=== PATIENT | female | born 1965 | race Caucasian/White ===

== ENCOUNTER 2019-11-18 17:10 | Inpatient (IN) | payer OTHER ==
[~2019-11-18] VITALS: Ht 177.8 cm; Wt 49.4 kg
--- NOTE | 2019-11-18 17:26 | NUR ---
[facility] from [facility] "Increasing confusion/vomiting". PT PRESENTS VERY JAUNDICED. DENIES SOB, DENIES PAIN, DIZZINESS, WEAKNESS. AOX2, VSS, RR EVEN AND UNLABORED ON RA. CONSTANTLY REPEATS HERSELF. ON MONITOR, MADE COMFORTABLE, AND READY FOR EVAL.
--- NOTE | 2019-11-18 17:50 | NUR ---
SPOKED TO PT SISTER CALL HER BACK FOR UPDATE [phone]
[2019-11-18 18:07] LABS: BASOPHILS # (AUTO) 0.1 /CMM (0.0-0.2); HEMOGLOBIN 9.3 g/dL (11.5-14.8); LYMPHOCYTES # (AUTO) 1.1 /CMM (0.8-4.8)
--- NOTE | 2019-11-18 18:10 | NUR ---
URINE SENT TO STAT LAB
[2019-11-18 18:11] LABS: WHITE BLOOD COUNT (AUTO) 9.7 K/uL (4.3-11.0)
[2019-11-18 18:15] LABS: CALCIUM, SERUM 10.4 mg/dL (8.5-10.1); CREATININE 0.9 mg/dL (0.6-1.3); POTASSIUM 4.7 mmol/L (3.5-5.1)
--- NOTE | 2019-11-18 18:16 | NUR ---
XRAY AT BEDSIDE
[2019-11-18 18:18] LABS: MAGNESIUM 2.1 mg/dL (1.8-2.4); PHOSPHORUS 3.8 mg/dL (2.5-4.9)
[2019-11-18] MEDS ORDERED: ZINC1CAP2 PO (18:19)
[2019-11-18] MEDS ORDERED: ACET-868 PO (18:19)
[2019-11-18] MEDS ORDERED: RIFA550T PO (18:19)
[2019-11-18] MEDS ORDERED: LIDO30JE4 TD (18:19)
[2019-11-18] MEDS ORDERED: LACT10SO PO (18:19)
[2019-11-18] MEDS ORDERED: DOCU-141 PO (18:19)
[2019-11-18] MEDS ORDERED: THIA100T74 PO (18:19)
[2019-11-18] MEDS ORDERED: ERGO500014 PO (18:19)
[2019-11-18] MEDS ORDERED: FOLI0.8T PO (18:19)
[2019-11-18] MEDS ORDERED: NA P133E RC (18:19)
[2019-11-18] MEDS ORDERED: OXYM-12 (18:19)
[2019-11-18] MEDS ORDERED: FURO-144 PO (18:19)
[2019-11-18] MEDS ORDERED: [UNRECOGNIZED DRUG - CODE] IV (18:19)
[2019-11-18] MEDS ORDERED: PANT40TA2 PO (18:19)
[2019-11-18] MEDS ORDERED: POLY17PO4 PO (18:19)
[2019-11-18] MEDS ORDERED: SPIR100T5 PO (18:19)
[2019-11-18] MEDS ORDERED: ACET-2605 PO ×2 (18:19)
[2019-11-18] MEDS ORDERED: SENN-261 PO (18:19)
[2019-11-18] MEDS ORDERED: SODI88SP18 (18:19)
[2019-11-18] MEDS ORDERED: BISA10SU11 RC (18:19)
[2019-11-18] MEDS ORDERED: MAGN400O6 PO (18:19)
[2019-11-18] MEDS ORDERED: MULT-447 PO (18:19)
[2019-11-18] MEDS ORDERED: MIDO5TAB4 PO (18:19)
[2019-11-18 18:21] LABS: APPEARANCE,URINE Slightly Cloudy (CLEAR); BILIRUBIN,URINE MODERATE (NEGATIVE); BLOOD, URINE Moderate Ery/uL (NEGATIVE); COLOR,URINE Dark (YELLOW); KETONES,URINE Negative (NEGATIVE); LEUKOCYTE ESTERASE ,URINE Negative (NEGATIVE); NITRITE, URINE Negative (NEGATIVE); PROTEIN,URINE Negative (NEGATIVE); UGLUCOSE Negative (NEGATIVE)
[2019-11-18 18:29] LABS: ALBUMIN 3.7 g/dL (3.4-5.0); BILIRUBIN,DIRECT 11.3 mg/dL (0.0-0.2); BILIRUBIN,TOTAL 21.9 mg/dL (0.2-1.0); TOTAL PROTEIN, SERUM 7.2 g/dL (6.4-8.2)
--- NOTE | 2019-11-18 18:52 | NUR ---
SPOKE WITH INTERACTIVE MEDIA PROJECT MANAGER TO UPDATE WITH CLINICALS
--- NOTE | 2019-11-18 19:01 | NUR ---
PT RESTING COMFORTABLY IN BED. VSS. WILL CONT TO MONITOR.
[2019-11-18 19:03] LABS: EOSINOPHILS % (AUTO) 2.9 % (0.0-6.0); HEMATOCRIT 26 % (33-45); LYMPHOCYTES % (AUTO) 11.3 % (20.0-44.0); MEAN CORPUSCULAR HGB CONC 37 g/dl (31.0-36.0); MEAN CORPUSCULAR VOLUME 110 fL (82-100); MONOCYTES # (AUTO) 1.2 /CMM (0.1-1.30); MONOCYTES % (AUTO) 12.8 % (2.0-12.0); PLATELET COUNT (AUTO) 123 /CMM (150-450); RED BLOOD CELL COUNT(AUTO) 2.32 MIL/uL (4.0-5.2)
[2019-11-18 19:22] LABS: BACTERIA,URINE Moderate /HPF (None Seen); SQUAMOUS EPITHELIAL CELL,UR Moderate /HPF (None Seen); WBC,URINE 0-2 /HPF (0-3)
--- NOTE | 2019-11-18 19:37 | NUR ---
MOVED PT TO ER BED 12 DUE TO NEED FOR SITTER. PT MAKING ATTEMPTS TO GET OUT OF BED.
--- NOTE | 2019-11-18 20:16 | NUR ---
PANEL CALL IN PROGRESS WITH DR. KNOTT
[2019-11-18] MEDS ORDERED: CT SWABBABLE VALVE TRANS SET 1 EA INFUS.SET MC ONE (20:29)
[2019-11-18] MEDS ORDERED: IOHEXOL-300 100 ML VIAL IV ONE (20:29)
[2019-11-18] MEDS ORDERED: IV NS 0.9% 250 ML IV ONE (20:30)
--- NOTE | 2019-11-18 20:33 | NUR ---
LIDYA FOY (SISTER) : [phone]
--- NOTE | 2019-11-18 20:33 | NUR ---
PT TAKEN TO RADIOLOGY VIA [facility]
--- NOTE | 2019-11-18 20:34 | NUR ---
DR. POLINA DUFFY (liver specialist) [phone]. pcp: Dr. gaudencio cortez [phone]
--- NOTE | 2019-11-18 21:04 | NUR ---
BODY AND FENDER WORKER AT BEDSIDE
--- NOTE | 2019-11-18 21:25 | NUR ---
REPORT GIVEN TO BRIANNE ADKINS FOR 325-2, DR HEDY CHAUDHARY Addendum: 11/18/19 at 2154 by MISBAH BRIANNE MITCHELL
[2019-11-18] MEDS ORDERED: POLYETHYLENE GLYCOL 3350 17 GM POWD.PACK PO PRN (21:30)
[2019-11-18] MEDS ORDERED: BISACODYL SUPP (10 MG) 10 MG/SUPP.RECT SUPP.RECT RC PRN (21:30)
[2019-11-18] MEDS ORDERED: NA PHOS,M-B/NA PHOS,DI-BA 1 EA ENEMA RC PRN (21:30)
[2019-11-18 21:49] VITALS: BP 105/63
--- NOTE | 2019-11-18 21:49 | NUR ---
CONSTRUCTION ASSISTANT NOTES RECEIVED PATIENT FROM ER VIA [facility]. PATIENT WAS A/O X2-3. ON ROOM AIR, NO SOB/ ACUTE RESPIRATORY DISTRESS NOTED. NO COMPLAINTS OF PAIN. ORIENTED PATIENT TO ROOM. CALL LIGHT WITHIN REACH. VITALS TAKEN- BP 105/63, HR 85, RR 18. ORAL TEMP 97.6, O2 SAT 98%. BED IS IN LOWEST LOCKED POSITION WITH SIDE RAILS UP X2, SEMI FOWLERS. WILL CONTINUE TO MONITOR.
--- NOTE | 2019-11-18 21:54 | NUR ---
[facility]
[2019-11-18] MEDS ORDERED: MAG HYDROX/AL HYDROX/SIMETH 30 ML UDC PO PRN (22:00)
[2019-11-18] MEDS ORDERED: ACETAMINOPHEN 325 MG TABLET PO PRN (22:00)
[2019-11-18] MEDS: DOCUSATE SODIUM 100 MG CAPSULE PO SCH (23:07)
[2019-11-18] MEDS: LACTULOSE 10 G/15 ML UDC (PYXIS) PO SCH (23:07)
[2019-11-19] VITALS: BP 106/63
[2019-11-19] MEDS: IV NS 0.9% 1,000 ML IV PRN ×2 (01:22→17:11)
[2019-11-19 04:00] VITALS: BP 115/59
[2019-11-19] MEDS: MIDODRINE HCL (5MG) 5 MG TABLET PO SCH ×3 (04:09→21:17)
[2019-11-19 06:21] LABS: BASOPHILS % (AUTO) 0.4 % (0.0-2.0); EOSINOPHILS % (AUTO) 3.7 % (0.0-6.0); HEMATOCRIT 23 % (33-45); HEMOGLOBIN 8.5 g/dL (11.5-14.8); LYMPHOCYTES # (AUTO) 1.3 /CMM (0.8-4.8); MEAN CORPUSCULAR HGB CONC 37 g/dl (31.0-36.0); MEAN CORPUSCULAR VOLUME 111 fL (82-100); MONOCYTES # (AUTO) 1.1 /CMM (0.1-1.30); MONOCYTES % (AUTO) 13.4 % (2.0-12.0); NEUTROPHILS # (AUTO) 5.7 /CMM (1.8-8.9); NEUTROPHILS % (AUTO) 67.5 % (43.0-81.0); PLATELET COUNT (AUTO) 114 /CMM (150-450); RED BLOOD CELL COUNT(AUTO) 2.08 MIL/uL (4.0-5.2); WHITE BLOOD COUNT (AUTO) 8.4 K/uL (4.3-11.0)
--- NOTE | 2019-11-19 06:21 | NUR ---
VEGETABLE VENDOR CLOSING NOTES PATIENT IS LAYING IN BED. CALL LIGHT IS WITHIN REACH. ON ROOM AIR, NO SOB/ ACUTE RESPIRATORY DISTRESS NOTED. NO COMPLAINTS OF PAIN AT THIS TIME. IV ON RIGHT AC #20G IS PATENT AND INTACT RUNNING NS @ 75MLS/HR. BED IS IN LOWEST LOCKED POSITION WITH SIDE RAILS UP X2. NORMAL SINUS RHYTHM 87. A/O X2-3. ALL DUE MEDS GIVEN. WILL ENDORSE TO AM NURSE.
[2019-11-19 06:44] LABS: CALCIUM, SERUM 9.7 mg/dL (8.5-10.1); CREATININE 0.9 mg/dL (0.6-1.3); PHOSPHORUS 3.8 mg/dL (2.5-4.9); POTASSIUM 4.9 mmol/L (3.5-5.1)
[2019-11-19 06:45] LABS: THYROID STIMULATING HORMONE 0.824 uIU/mL (0.358-3.74)
[2019-11-19 07:13] LABS: EOSINOPHILS % (MANUAL) 2 % (0-4); LYMPHOCYTES % (MANUAL) 15 % (16-48); MONOCYTES % (MANUAL) 9 % (0-11.0); NEUTROPHILS % (MANUAL) 74 (42-76)
--- NOTE | 2019-11-19 07:15 | NUR ---
RN NOTES RECEIVED PATIENT IN BED RESTING COMFORTABLY IN MODERATE HIGH BACK REST. A/O X 3. NO SIGNS OF DISTRESS NOTED AT THIS TIME. IV FLUIDS ON RIGHT AC #20G RUNNING NS @ 75MLS/HR. PATENT AND INTACT. ON TELE MONITOR WITH CURRENT READING OF SR, HR OF 80'S. SAFETY MEASURES IN PLACE, BED IS IN LOWEST LOCKED POSITION WITH SIDE RAILS UP X2. CALL LIGHT WITHIN REACH. WILL CONTINUE TO MONITOR.
[2019-11-19 08:00] VITALS: BP 115/56
[2019-11-19 08:08] LABS: THYROID STIMULATING HORMONE 0.775 uIU/mL (0.358-3.74)
[2019-11-19] MEDS: LACTULOSE 10 G/15 ML UDC (PYXIS) PO SCH ×2 (08:38→16:16)
[2019-11-19] MEDS: THIAMINE HCL 100 MG TABLET PO SCH ×3 (08:38→16:16)
[2019-11-19] MEDS: PANTOPRAZOLE 40 MG TABLET.DR PO SCH (08:38)
[2019-11-19] MEDS: RIFAXIMIN 550 MG TABLET PO SCH ×2 (08:38→16:16)
[2019-11-19] MEDS: ZINC SULFATE 220 MG CAPSULE PO SCH (08:38)
[2019-11-19] MEDS: MULTIVITAMINS,THERAGRAN 1 UDTAB TABLET PO SCH (08:38)
[2019-11-19] MEDS: FOLIC ACID 1 MG TABLET PO SCH (08:38)
--- NOTE | 2019-11-19 09:19 | NUR ---
WOUND CARE CONSULT; PT PRESENTS WITH SCAR TO LOWER SACRUM AND VERY JAUNDICED SKIN AND SCLERA, PRESENT ON ADMISSION. PT MOVES IN BED ALMOST CONSTANTLY AND PT NOTED TO BE INCONTINENT. RECOMMENDATIONS MADE FOR SKIN PROTECTION. DISCUSSED WITH NURSING STAFF. WILL SEE PRN. ZUÑIGA IN AGREEMENT WITH PLAN OF CARE. Addendum: 11/19/19 at 0921 by BRIAN CHAPA WNDNU Amended: Links added.
[2019-11-19] MEDS ORDERED: Z GUARD REMEDY 2 OZ OINT TP PRN (09:30)
[2019-11-19] MEDS: Z GUARD REMEDY 2 OZ OINT TP SCH (10:02)
--- NOTE | 2019-11-19 12:10 | NUR ---
RN NOTES PICKED BY VIA WHEELCHAIR FOR MRCP, CONSENT SIGNED, PATIENT IN NO SIGNS OF DISTRESS.
--- NOTE | 2019-11-19 13:10 | NUR ---
RN NOTES PATIENT CAMEBACK FROM [facility] VIA WHEELCHAIR, PATIENT IN NO SIGNS OF DISTRESS. WILL CONTINUE TO MONITOR.
[2019-11-19 16:00] VITALS: BP 113/59
--- NOTE | 2019-11-19 18:38 | NUR ---
RN NOTES PATIENT IN BED RESTING COMFORTABLY IN MODERATE HIGH BACK REST. A/O X 3. NO SIGNS OF DISTRESS NOTED THROUGHOUT THE SHIFT. S/P MRCP, IV FLUIDS ON RIGHT AC #20G RUNNING NS @ 75MLS/HR. PATENT AND INTACT. SAFETY MEASURES IN PLACE, BED IS IN LOWEST LOCKED POSITION WITH SIDE RAILS UP X2. CALL LIGHT WITHIN REACH. WILL ENDORSE TO THIRD COOK NURSE FOR JAYCEE.
--- NOTE | 2019-11-19 19:00 | NUR ---
RN OPENING NOTES' Receive patient awake on bed on RA, no SOB/respiratory distress noted. No complaints made at this time. On bed with bizarre behavior, no harm to self noted. Patient refused to clean up self, hair unkempt, likes to undress self. Kept on bed comfortable. Call light within easy reach. Will continue to monitor accordingly.
[2019-11-19 20:00] VITALS: BP 115/69
[2019-11-19] MEDS: DOCUSATE SODIUM 100 MG CAPSULE PO SCH (21:17)
[2019-11-20] MEDS: MIDODRINE HCL (5MG) 5 MG TABLET PO SCH ×3 (05:32→21:56)
[2019-11-20 06:25] LABS: BASOPHILS % (AUTO) 0.2 % (0.0-2.0); EOSINOPHILS % (AUTO) 3.2 % (0.0-6.0); HEMATOCRIT 22 % (33-45); HEMOGLOBIN 8.2 g/dL (11.5-14.8); LYMPHOCYTES # (AUTO) 1.2 /CMM (0.8-4.8); LYMPHOCYTES % (AUTO) 16.8 % (20.0-44.0); MEAN CORPUSCULAR HGB CONC 38 g/dl (31.0-36.0); MEAN CORPUSCULAR VOLUME 113 fL (82-100); MONOCYTES # (AUTO) 1.1 /CMM (0.1-1.30); MONOCYTES % (AUTO) 15.2 % (2.0-12.0); NEUTROPHILS # (AUTO) 4.7 /CMM (1.8-8.9); NEUTROPHILS % (AUTO) 64.6 % (43.0-81.0); WHITE BLOOD COUNT (AUTO) 7.3 K/uL (4.3-11.0)
[2019-11-20 06:39] LABS: URINE SODIUM, RANDOM 65 mmol/l (40-220)
[2019-11-20] MEDS: IV NS 0.9% 1,000 ML IV PRN (06:39)
--- NOTE | 2019-11-20 06:48 | NUR ---
RN CLOSING NOTES Patient awake on bed, on RA. Noted able to sleep intermittently within the shift. All nursing needs attended. No new unusualities noted. Kept on bed clean, dry and comfortable. Call light within easy reach. Endorsed.
[2019-11-20 06:51] LABS: ALBUMIN 2.8 g/dL (3.4-5.0); BILIRUBIN,TOTAL 19.8 mg/dL (0.2-1.0); CALCIUM, SERUM 9.4 mg/dL (8.5-10.1); CREATININE 0.6 mg/dL (0.6-1.3); MAGNESIUM 1.9 mg/dL (1.8-2.4); PHOSPHORUS 2.9 mg/dL (2.5-4.9); POTASSIUM 5.1 mmol/L (3.5-5.1); TOTAL PROTEIN, SERUM 5.7 g/dL (6.4-8.2)
[2019-11-20 06:52] LABS: RED BLOOD CELL COUNT(AUTO) 1.93 MIL/uL (4.0-5.2)
--- NOTE | 2019-11-20 07:15 | NUR ---
MS RN OPENING NOTES RECEIVED PT IN BED, AWAKE, A/OX2-3. PT TOLERATING RA WITH NO ACUTE RESPIRATORY DISTRESS NOTED. PT DENIES ANY PAIN OR DISCOMFORT AT THIS TIME. DURING MORNING ROUNDS, PT PULLED OUT IV SOON MD/GA LEFT THE ROOM. PT PREFERS NOT TO INSERT NEW IV AT THIS TIME. MD/GA AWARE ABOUT PT BEHAVIOR. PT KEPT COMFORTABLE IN BED. PT'S BED IN LOWEST, LOCKED POSITION WITH SR X3. CALL LIGHT KEPT WITHIN REACH. WILL CONTINUE PLAN OF CARE.
[2019-11-20 07:16] LABS: OSMOLALITY,URINE 506 mOS/kg (340-1090)
[2019-11-20 08:01] LABS: BAND % (MANUAL) 1 % (0.0-5.0); LYMPHOCYTES % (MANUAL) 19 % (16-48); NEUTROPHILS % (MANUAL) 65 (42-76)
[2019-11-20 08:02] LABS: EOSINOPHILS % (MANUAL) 4 % (0-4); MONOCYTES % (MANUAL) 11 % (0-11.0)
--- NOTE | 2019-11-20 08:20 | NUR ---
MS RN NOTES PT REFUSED VITAL SIGNS, MORNING MEDICATIONS AND IV INSERTION AT THIS TIME. RISKS AND BENEFITS EXPLAINED, INSISTED TO REFUSE.
[2019-11-20 08:27] LABS: PLATELET COUNT (AUTO) 99 /CMM (150-450)
[2019-11-20] MEDS: SENNOSIDES 8.6 MG TABLET PO PRN (09:21)
[2019-11-20] MEDS: THIAMINE HCL 100 MG TABLET PO SCH ×3 (09:21→16:43)
[2019-11-20] MEDS: LACTULOSE 10 G/15 ML UDC (PYXIS) PO SCH ×2 (09:21→16:43)
[2019-11-20] MEDS: FOLIC ACID 1 MG TABLET PO SCH (09:21)
[2019-11-20] MEDS: PANTOPRAZOLE 40 MG TABLET.DR PO SCH (09:21)
[2019-11-20] MEDS: ZINC SULFATE 220 MG CAPSULE PO SCH (09:21)
[2019-11-20] MEDS: MULTIVITAMINS,THERAGRAN 1 UDTAB TABLET PO SCH (09:21)
[2019-11-20] MEDS: RIFAXIMIN 550 MG TABLET PO SCH ×2 (09:21→16:43)
[2019-11-20] MEDS: Z GUARD REMEDY 2 OZ OINT TP SCH (09:25)
[2019-11-20 09:37] LABS: THYROID STIMULATING HORMONE 1.752 uIU/mL (0.358-3.74); URIC ACID 4.3 mg/dL (2.6-7.2)
--- NOTE | 2019-11-20 10:28 | NUR ---
MS RN NOTES PATIENT SEEN BY DR ALCOCER ORDERS TO DISCONTINUE IV FLUIDS NOTED AND CARRIED OUT.
--- NOTE | 2019-11-20 10:30 | NUR ---
MS RN NOTES SPOKE TO /BARBIE REGARDING PT'S FAMILY/SISTER RICKY REQUEST TO SPEAK TO HIM. PER MD NOT ABLEAT THIS TIME. NUMBER OF SISTER/RICKY ; MADE AWARE THAT /BARBIE IS INFORMED WELL. PT ALSO AWARE.
[2019-11-20 16:00] VITALS: BP 107/50
--- NOTE | 2019-11-20 18:55 | NUR ---
MS RN CLOSING NOTES PT REMAINS IN BED, AWAKE, A/OX2-3. PT TOLERATING RA WITH NO ACUTE RESPIRATORY DISTRESS NOTED. PT DENIES ANY PAIN OR DISCOMFORT AT THIS TIME. PIV TO RFA G20, FLUSHED WITH NS, INTACT AND OPERATIONAL. ALL NEEDS AND CARE ATTENDED. PT KEPT COMFORTABLE IN BED. PT'S BED IN LOWEST, LOCKED POSITION WITH SR X3. CALL LIGHT KEPT WITHIN REACH. WILL ENDORSE TO INCOMING NIGHT NURSE FOR JAYCEE.
[2019-11-20 20:30] VITALS: BP 115/59
[2019-11-20] MEDS: DOCUSATE SODIUM 100 MG CAPSULE PO SCH (21:55)
[2019-11-21] MEDS: MIDODRINE HCL (5MG) 5 MG TABLET PO SCH ×3 (05:24→20:37)
--- NOTE | 2019-11-21 06:12 | NUR ---
MS RN NOTES AWAKE & RESPONSIVE. STILL CONFUSED. NOT IN ANY DISTRESS. NO SOB NOTED. DENIES ANY PAIN OR DISCOMFORT AT THIS TIME. WITH IVF INFUSING WELL. AM CARE DONE. MONITORED ACCORDINGLY. CALL LIGHT WITHIN REACH. BED IN LOWEST POSITION. SR UP X 3 WITH BED ALARM ON FOR SAFETY. WILL ENDORSE TO NEXT SHIFT.
[2019-11-21 06:44] LABS: BASOPHILS % (AUTO) 0.3 % (0.0-2.0); EOSINOPHILS % (AUTO) 1.1 % (0.0-6.0); HEMATOCRIT 21 % (33-45); HEMOGLOBIN 7.8 g/dL (11.5-14.8); LYMPHOCYTES # (AUTO) 0.9 /CMM (0.8-4.8); LYMPHOCYTES % (AUTO) 11.2 % (20.0-44.0); MEAN CORPUSCULAR HGB CONC 37 g/dl (31.0-36.0); MEAN CORPUSCULAR VOLUME 111 fL (82-100); MONOCYTES # (AUTO) 0.9 /CMM (0.1-1.30); MONOCYTES % (AUTO) 10.9 % (2.0-12.0); NEUTROPHILS # (AUTO) 6.2 /CMM (1.8-8.9); NEUTROPHILS % (AUTO) 76.5 % (43.0-81.0); PLATELET COUNT (AUTO) 88 /CMM (150-450); WHITE BLOOD COUNT (AUTO) 8.1 K/uL (4.3-11.0)
[2019-11-21 06:46] LABS: RED BLOOD CELL COUNT(AUTO) 1.88 MIL/uL (4.0-5.2)
[2019-11-21 07:07] LABS: CALCIUM, SERUM 9.4 mg/dL (8.5-10.1); CREATININE 0.6 mg/dL (0.6-1.3); POTASSIUM 4.6 mmol/L (3.5-5.1)
--- NOTE | 2019-11-21 07:15 | NUR ---
MS RN OPENING NOTES RECEIVED PT AWAKE, A/O X4. TOLERATING RA,WITH NO ACUTE RESPIRATORY DISTRESS NOTED. PT DENIES ANY PAIN OR DISCOMFORT AT THIS TIME. PT DENIES ANY QUESTIONS OR CONCERNS AT THE MOMENT. PIV TO RAC G20, FLUSHED WITH NS INTACT AND OPERATIONAL. PT KEPT COMFORTABLE IN BED. CALL LIGHT KEPT WITHIN REACH. PT'S BED IN LOWEST, LOCKED POSITION WITH SR X3. WILL CONTINUE PLAN OF CARE.
--- NOTE | 2019-11-21 07:31 | NUR ---
MS RN NOTES SEEN AND EVALUATED BY MD/BARBIE, NO ORDERS NOTED AT THIS TIME OTHER THAN REPEAT LABS PETER IN AM. RN REMINDED MD TO CALL SISTER/RICKY WELL. PER MD HE'LL CALL WHEN HE GETS A CHANCE TODAY. PT AWARE AND OKAY WITH IT.
[2019-11-21] MEDS: PANTOPRAZOLE 40 MG TABLET.DR PO SCH (07:56)
[2019-11-21 08:00] VITALS: BP 121/75
[2019-11-21] MEDS: THIAMINE HCL 100 MG TABLET PO SCH ×3 (08:03→16:27)
[2019-11-21] MEDS: ZINC SULFATE 220 MG CAPSULE PO SCH (08:03)
[2019-11-21] MEDS: MULTIVITAMINS,THERAGRAN 1 UDTAB TABLET PO SCH (08:03)
[2019-11-21] MEDS: FOLIC ACID 1 MG TABLET PO SCH (08:03)
[2019-11-21] MEDS: RIFAXIMIN 550 MG TABLET PO SCH ×2 (08:04→16:27)
[2019-11-21] MEDS: LACTULOSE 10 G/15 ML UDC (PYXIS) PO SCH ×2 (08:04→16:27)
[2019-11-21] MEDS: Z GUARD REMEDY 2 OZ OINT TP SCH (08:05)
[2019-11-21 08:27] LABS: BAND % (MANUAL) 1 % (0.0-5.0); EOSINOPHILS % (MANUAL) 1 % (0-4); LYMPHOCYTES % (MANUAL) 11 % (16-48); MONOCYTES % (MANUAL) 8 % (0-11.0); NEUTROPHILS % (MANUAL) 79 (42-76)
[2019-11-21 16:00] VITALS: BP 115/55
[2019-11-21] MEDS: SENNOSIDES 8.6 MG TABLET PO PRN (16:27)
--- NOTE | 2019-11-21 18:35 | NUR ---
MS RN CLOSING NOTES PT AWAKE, A/O X4. TOLERATING RA,WITH NO ACUTE RESPIRATORY DISTRESS NOTED. PT DENIES ANY PAIN OR DISCOMFORT AT THIS TIME. PIV TO RAC G20, FLUSHED WITH NS INTACT AND OPERATIONAL. N ALL NEEDS AND CARE ATTENDED. PT KEPT COMFORTABLE IN BED. CALL LIGHT KEPT WITHIN REACH. PT'S BED IN LOWEST, LOCKED POSITION WITH SR X3. WILL ENDORSE TO INCOMING NIGHT NURSE FOR JAYCEE.
[2019-11-21 20:11] VITALS: BP 110/50
[2019-11-21] MEDS: DOCUSATE SODIUM 100 MG CAPSULE PO SCH (20:37)
[2019-11-22] MEDS: MIDODRINE HCL (5MG) 5 MG TABLET PO SCH ×3 (04:52→20:47)
--- NOTE | 2019-11-22 06:00 | NUR ---
MS RN PM CLOSING NOTES PT AWAKE, A/O X3 PT IS QUITE FORGETFUL WITH DISORGANIZED THOUGHT BUT KNOWS NAME, LOCATION PLACE AND TIME. TOLERATING RA,WITH NO ACUTE RESPIRATORY DISTRESS NOTED. PT DENIES ANY PAIN OR DISCOMFORT AT THIS TIME. PIV TO RAC G20, FLUSHED WITH NS INTACT AND OPERATIONAL. PATIENT KEEPING CELLPHONE WITHIN REACH. CALL LIGHT KEPT WITHIN REACH. PT'S BED IN LOWEST, LOCKED POSITION WITH SR X3.
[2019-11-22 06:41] LABS: CALCIUM, SERUM 9.2 mg/dL (8.5-10.1); CREATININE 0.7 mg/dL (0.6-1.3); MAGNESIUM 1.7 mg/dL (1.8-2.4); POTASSIUM 4.5 mmol/L (3.5-5.1)
[2019-11-22] MEDS ORDERED: LACTULOSE 10 G/15 ML UDC (PYXIS) PO ONE (07:30)
[2019-11-22 07:59] VITALS: BP 108/55
--- NOTE | 2019-11-22 08:00 | NUR ---
RN NOTES RECEIVED PATIENT IN THE BED A/O X2/3 WITH CONFUSION. PATIENT HAS NO ACUTE RESPIRATORY DISTRESS, V/S STABLE, ADMINISTERED SCHEDULED MEDICATION. PATIENT YELLOW SCLERA, AND SKIN WELL. SEEN BY HOSPITALIST DR VINSON . PLAN IS TAKEN MEDICATION FOR ELEVATED AMMONIA LEVEL, RESTRICT FLUID INTAKE,AND CONTINUE HOSPITALIZATION. PATIENT TOTAL CARE, BUT ABLE TO TURN AND REPOSTION SELF IN THE BED. CALL LIGHT WITHIN TO REACH. TOLERATED BREAKFAST 75% SELF. CONTINUED MONITORING.
[2019-11-22 08:25] VITALS: BP 116/61
[2019-11-22] MEDS: THIAMINE HCL 100 MG TABLET PO SCH ×3 (08:32→17:40)
[2019-11-22] MEDS: ZINC SULFATE 220 MG CAPSULE PO SCH (08:33)
[2019-11-22] MEDS: RIFAXIMIN 550 MG TABLET PO SCH ×2 (08:33→17:40)
[2019-11-22] MEDS: FOLIC ACID 1 MG TABLET PO SCH (08:33)
[2019-11-22] MEDS: LACTULOSE 10 G/15 ML UDC (PYXIS) PO SCH ×2 (08:33→17:40)
[2019-11-22] MEDS: PANTOPRAZOLE 40 MG TABLET.DR PO SCH (08:33)
[2019-11-22] MEDS: MULTIVITAMINS,THERAGRAN 1 UDTAB TABLET PO SCH (08:33)
[2019-11-22] MEDS: Magnesium 1GM/D5W 100ML PREMIX 100 ML IV SCH ×2 (08:34→10:10)
[2019-11-22] MEDS: Z GUARD REMEDY 2 OZ OINT TP SCH (08:34)
--- NOTE | 2019-11-22 13:00 | NUR ---
RN NOTES PATIENT STABLE REFUSED BP MEDICATION BP117/59, SAFETY PRECAUTION MAINTAINED ALL THE TIME.
[2019-11-22 15:59] VITALS: BP 117/57
--- NOTE | 2019-11-22 18:30 | NUR ---
RN NOTES PATIENT STABLE REFUSED PAIN, V/S STABLE, ADMINISTERED SCHEDULED MEDICATION. NO ACUTE RESPIRATORY DISTRESS, SEIZURE PRECAUTION MAINTAINED. CALL LIGHT WITHIN TO REACH. PATIENT INCONTINENT. PATIENT KEEP PICKING NOSE AND BLEEDING. EDUCATED PATIENT DO NOT TOUCH. ENDORSED ONCOMING NURSE FOLLOW PLAN OF CARE.
--- NOTE | 2019-11-22 19:30 | NUR ---
RN PM NOTES BEDSIDE REPORT RECIEVED FROM JUAN MANUEL DECKER. NO ACUTE RESPIRATORY DISTRESS BREATHING EVEN AND UNLABORED PATIENT IS ALERT AND ORIENTED X2 REORIENTED TO TIME, SEIZURE PRECAUTION IN PLACE. CALL LIGHT WITHIN TO REACH. BED DOWN AND LOCKED SRX3 PATIENT VERBALIZED UNDERSTANDING TO CALL FOR ASSISTANCE IF NEEDED. NO S/S OF BLEEDING. NOSE NOTED TO HAVE SCABS/ DRY BLOOD BUT NOT ACTIVELY BLEEDING.
[2019-11-22 20:11] VITALS: BP 98/52
[2019-11-22] MEDS: DOCUSATE SODIUM 100 MG CAPSULE PO SCH (20:46)
[2019-11-23] VITALS (8 sets, daily range): BP systolic 96–123; BP diastolic 44–61
[2019-11-23] MEDS: MIDODRINE HCL (5MG) 5 MG TABLET PO SCH ×3 (05:48→22:08)
[2019-11-23 06:46] LABS: CALCIUM, SERUM 8.8 mg/dL (8.5-10.1); CREATININE 0.7 mg/dL (0.6-1.3); MAGNESIUM 1.9 mg/dL (1.8-2.4); POTASSIUM 4.4 mmol/L (3.5-5.1)
[2019-11-23 06:51] LABS: BASOPHILS % (AUTO) 0.2 % (0.0-2.0); EOSINOPHILS % (AUTO) 1.4 % (0.0-6.0); LYMPHOCYTES % (AUTO) 13.1 % (20.0-44.0); MEAN CORPUSCULAR HGB CONC 37 g/dl (31.0-36.0); MEAN CORPUSCULAR VOLUME 112 fL (82-100); MONOCYTES # (AUTO) 1.1 /CMM (0.1-1.30); MONOCYTES % (AUTO) 14.8 % (2.0-12.0); NEUTROPHILS # (AUTO) 5.4 /CMM (1.8-8.9); NEUTROPHILS % (AUTO) 70.5 % (43.0-81.0); PLATELET COUNT (AUTO) 80 /CMM (150-450); WHITE BLOOD COUNT (AUTO) 7.6 K/uL (4.3-11.0)
[2019-11-23 06:56] LABS: RED BLOOD CELL COUNT(AUTO) 1.69 MIL/uL (4.0-5.2)
[2019-11-23 06:58] LABS: HEMATOCRIT 19 % (33-45); HEMOGLOBIN 6.9 g/dL (11.5-14.8)
--- NOTE | 2019-11-23 07:17 | NUR ---
MS RN NOTES RECEIVED PATIENT IN BED, AWAKE, A/O X3. PATIENT ON ROOM AIR BREATHING EVENLY IN NO ACUTE DISTRESS OR SOB AT THIS TIME. PATIENT DENIES PAIN AT THIS TIME. RFA IV ACCESS GAUGE # 20 PRESENT, INTACT AND FLUSHING WELL. SAFETY PRECAUTIONS IN PLACE; BED IN LOW POSITION AND LOCKED, RAILS UP X2, CALL LIGHT WITHIN REACH. WILL CONTINUE TO MONITOR PATIENT.
--- NOTE | 2019-11-23 07:18 | NUR ---
hgb 6.9 critica value contacted jabier hartley no new orders. asked to follow up with am rounding doctor.
--- NOTE | 2019-11-23 07:45 | NUR ---
MS RN OPENING NOTES RECEIVED PATIENT IN BED, ASLEEP. PATIENT ON ROOM AIR BREATHING EVENLY IN NO ACUTE DISTRESS OR SOB AT THIS TIME. NO SIGNS OF PAIN SUCH FACIAL GRIMACING, MOANING OR GUARDING. RFA IV ACCESS GAUGE # 20 PRESENT, INTACT AND FLUSHING WELL. SAFETY PRECAUTIONS IN PLACE; BED IN LOW POSITION AND LOCKED, RAILS UP X2, CALL LIGHT WITHIN REACH. WILL CONTINUE TO MONITOR PATIENT.
[2019-11-23] MEDS: PANTOPRAZOLE 40 MG TABLET.DR PO SCH (07:53)
[2019-11-23] MEDS: LACTULOSE 10 G/15 ML UDC (PYXIS) PO SCH ×2 (08:20→16:54)
[2019-11-23] MEDS: RIFAXIMIN 550 MG TABLET PO SCH ×2 (08:20→16:54)
[2019-11-23] MEDS: ZINC SULFATE 220 MG CAPSULE PO SCH (08:20)
[2019-11-23] MEDS: FOLIC ACID 1 MG TABLET PO SCH (08:20)
[2019-11-23] MEDS: THIAMINE HCL 100 MG TABLET PO SCH ×3 (08:21→16:54)
[2019-11-23] MEDS: MULTIVITAMINS,THERAGRAN 1 UDTAB TABLET PO SCH (08:21)
[2019-11-23] MEDS: Z GUARD REMEDY 2 OZ OINT TP SCH (08:29)
[2019-11-23 09:48] LABS: BAND % (MANUAL) 3 % (0.0-5.0); EOSINOPHILS % (MANUAL) 4 % (0-4); LYMPHOCYTES % (MANUAL) 15 % (16-48); MONOCYTES % (MANUAL) 9 % (0-11.0); NEUTROPHILS % (MANUAL) 69 (42-76)
[2019-11-23 09:58] LABS: BASOPHILS % (AUTO) 0.1 % (0.0-2.0); EOSINOPHILS % (AUTO) 1.8 % (0.0-6.0); HEMOGLOBIN 7.1 g/dL (11.5-14.8); LYMPHOCYTES # (AUTO) 0.8 /CMM (0.8-4.8); LYMPHOCYTES % (AUTO) 12.6 % (20.0-44.0); MEAN CORPUSCULAR HGB CONC 37 g/dl (31.0-36.0); MEAN CORPUSCULAR VOLUME 112 fL (82-100); MONOCYTES # (AUTO) 0.7 /CMM (0.1-1.30); MONOCYTES % (AUTO) 9.9 % (2.0-12.0); NEUTROPHILS % (AUTO) 75.6 % (43.0-81.0); PLATELET COUNT (AUTO) 80 /CMM (150-450); WHITE BLOOD COUNT (AUTO) 6.7 K/uL (4.3-11.0)
[2019-11-23] MEDS: SENNOSIDES 8.6 MG TABLET PO PRN (09:59)
[2019-11-23 10:03] LABS: HEMATOCRIT 19 % (33-45); RED BLOOD CELL COUNT(AUTO) 1.72 MIL/uL (4.0-5.2)
--- NOTE | 2019-11-23 17:28 | NUR ---
MS RN NOTES PATIENT JUST FINISHED BLOOD TRANSFUSION OF 1 UNIT PRBC. PATIENT TOLERATED WELL. VS WNL BP: 123/60, HR: 100, T: 98.6, RR: 19 PATIENT LAYING IN BED COMFORTABLY. WILL CONTINUE TO MONITOR.
--- NOTE | 2019-11-23 18:56 | NUR ---
MS RN CLOSING NOTES PATIENT IN BED, AWAKE, A/O X2. PATIENT ON ROOM AIR BREATHING EVENLY IN NO ACUTE DISTRESS OR SOB AT THIS TIME. PATIENT DENIES PAIN AT THIS MOMENT. PATIENT HAD 1 UNIT PRBC TRANSFUSED TODAY. TRANSFUSION TOLERATED WELL. PATIENTS NEEDS MET THROUGHOUT THE DAY. RFA IV ACCESS GAUGE # 20 PRESENT, INTACT AND FLUSHING WELL. SAFETY PRECAUTIONS IN PLACE; BED IN LOW POSITION AND LOCKED, RAILS UP X2, CALL LIGHT WITHIN REACH. WILL ENDORSE TO KETTLE HAND NURSE.
--- NOTE | 2019-11-23 19:25 | NUR ---
MS RN OPENING NOTES PATIENT SLEEPING IN BED, EASY TO AWAKEN. A/OX2. PATIENT ABLE TO VERBALIZE NEEDS. ON ROOM AIR. NO S/S OF ACUTE RESPIRATORY DISTRESS AND NO COMPLAINTS OF PAIN AT THIS TIME. IV PRESENT ON RIGHT FOREARM, SIZE 20, INTACT & PATENT, HEP LOCKED. SAFETY MEASURES IN PLACE. BED LOCKED, ALARM ON, SIDE RAILS X2, CALL LIGHT WITHIN REACH. WILL CONTINUE TO MONITOR.
[2019-11-23] MEDS: DOCUSATE SODIUM 100 MG CAPSULE PO SCH (22:08)
--- NOTE | 2019-11-24 02:15 | NUR ---
MS RN NOTES PATIENTS NOSE (LEFT NOSTRIL) BEGAN TO BLEED; SCANT AMOUNT OF SEROSANGUINEOUS BLOOD. APPLIED GAUZE TO NOSTRIL. NO ACUTE DISTRESS NOTED. PATIENT DENIES AND SOB, PAIN, LIGHTHEADEDNESS. NO BLEEDING PRESENT IN GUMS OR VAGINAL AREA. WILL CONTINUE TO MONITOR.
--- NOTE | 2019-11-24 03:10 | NUR ---
MS RN NOTES PATIENT REMOVED GAUZE IN LEFT NOSTRIL, NO SIGNS OF BLEEDING NOTED. SLEEPING IN BED COMFORTABLY. NO DISTRESS NOTED. WILL CONTINUE TO MONITOR.
[2019-11-24] MEDS: MIDODRINE HCL (5MG) 5 MG TABLET PO SCH ×3 (04:38→21:12)
--- NOTE | 2019-11-24 06:27 | NUR ---
MS RN CLOSING NOTES PATIENT SLEEPING IN BED, EASY TO AWAKEN. A/OX2-3. ON ROOM AIR. NO S/S OF ACUTE RESPIRATORY DISTRESS AND NO C/O PAIN AT THIS TIME. SKIN REMAINS JAUNDICED. NO SIGNS OF BLEEDING NOTED. IV REMAINS INTACT & PATENT, HEP LOCKED. SAFETY MEASURES IN PLACE. BED LOCKED, ALARM ON, SIDE RAILS X2, CALL LIGHT WITHIN REACH. WILL ENDORSE TO DAY SHIFT NURESE PLAN OF CARE.
[2019-11-24 06:37] LABS: ALBUMIN 2.6 g/dL (3.4-5.0); BILIRUBIN,TOTAL 15.3 mg/dL (0.2-1.0); CREATININE 0.7 mg/dL (0.6-1.3); MAGNESIUM 1.8 mg/dL (1.8-2.4); PHOSPHORUS 3.2 mg/dL (2.5-4.9); POTASSIUM 5.1 mmol/L (3.5-5.1); TOTAL PROTEIN, SERUM 5.4 g/dL (6.4-8.2)
[2019-11-24] MEDS: PANTOPRAZOLE 40 MG TABLET.DR PO SCH (06:59)
[2019-11-24 08:00] VITALS: BP 124/58
--- NOTE | 2019-11-24 08:00 | NUR ---
MS RN AM NOTES PATIENT AWAKE. A/OX2-3. ON ROOM AIR. NO S/S OF ACUTE RESPIRATORY DISTRESS AND NO C/O PAIN AT THIS TIME. SKIN REMAINS JAUNDICED. NO SIGNS OF BLEEDING NOTED. IV REMAINS INTACT & PATENT, HEP LOCKED. SAFETY MEASURES IN PLACE. BED LOCKED, ALARM ON, SIDE RAILS X2, CALL LIGHT WITHIN REACH.
[2019-11-24 08:05] LABS: BASOPHILS % (AUTO) 0.2 % (0.0-2.0); EOSINOPHILS % (AUTO) 1.3 % (0.0-6.0); HEMATOCRIT 23 % (33-45); HEMOGLOBIN 8.4 g/dL (11.5-14.8); LYMPHOCYTES # (AUTO) 1.2 /CMM (0.8-4.8); LYMPHOCYTES % (AUTO) 14.6 % (20.0-44.0); MEAN CORPUSCULAR HGB CONC 36 g/dl (31.0-36.0); MEAN CORPUSCULAR VOLUME 106 fL (82-100); MONOCYTES # (AUTO) 1.2 /CMM (0.1-1.30); MONOCYTES % (AUTO) 14.5 % (2.0-12.0); NEUTROPHILS # (AUTO) 5.7 /CMM (1.8-8.9); NEUTROPHILS % (AUTO) 69.4 % (43.0-81.0); PLATELET COUNT (AUTO) 71 /CMM (150-450); RED BLOOD CELL COUNT(AUTO) 2.19 MIL/uL (4.0-5.2); WHITE BLOOD COUNT (AUTO) 8.2 K/uL (4.3-11.0)
[2019-11-24 08:06] LABS: EOSINOPHILS % (MANUAL) 2 % (0-4); LYMPHOCYTES % (MANUAL) 15 % (16-48); MONOCYTES % (MANUAL) 16 % (0-11.0); NEUTROPHILS % (MANUAL) 67 (42-76)
[2019-11-24] MEDS: ZINC SULFATE 220 MG CAPSULE PO SCH (09:09)
[2019-11-24] MEDS: RIFAXIMIN 550 MG TABLET PO SCH ×2 (09:09→17:46)
[2019-11-24] MEDS: MULTIVITAMINS,THERAGRAN 1 UDTAB TABLET PO SCH (09:09)
[2019-11-24] MEDS: THIAMINE HCL 100 MG TABLET PO SCH ×3 (09:09→17:46)
[2019-11-24] MEDS: FOLIC ACID 1 MG TABLET PO SCH (09:09)
[2019-11-24] MEDS: LACTULOSE 10 G/15 ML UDC (PYXIS) PO SCH ×2 (09:09→17:46)
[2019-11-24] MEDS: Z GUARD REMEDY 2 OZ OINT TP SCH (09:11)
[2019-11-24] MEDS: SODIUM CHLORIDE 1000 MG TABLET PO SCH ×3 (09:13→17:46)
[2019-11-24] MEDS: SPIRONOLACTONE 25 MG TABLET PO SCH (09:14)
[2019-11-24] MEDS: FUROSEMIDE 40 MG TABLET PO SCH (09:14)
[2019-11-24 16:00] VITALS: BP 108/56
[2019-11-24 19:30] VITALS: BP 102/56
--- NOTE | 2019-11-24 19:30 | NUR ---
MS RN NOTES PATIENT IN BED, AWAKE, ALERT AND ORIENTED X 2-3. FORGETFUL. BREATHING EVEN AND UNLABORED ON ROOM AIR. SHOWS NO SIGNS OF ACUTE RESPIRATORY DISTRESS, NO ACUTE PAIN. IV ON RFA #20G SALINE LOCK. ITS CLEAN, DRY AND INTACT. SHOWS NO SIGNS OF INFILTRATION NO REDNESS. SAFETY PRECAUTIONS IN PLACE. BED IN LOWEST POSITION. LOCKED, AND CALL LIGHT KEPT WITHIN REACH. WILL CONTINUE TO MONITOR.
[2019-11-24 20:56] VITALS: BP 102/56
[2019-11-24] MEDS: DOCUSATE SODIUM 100 MG CAPSULE PO SCH (21:12)
[2019-11-25] MEDS: MIDODRINE HCL (5MG) 5 MG TABLET PO SCH ×3 (05:34→21:16)
--- NOTE | 2019-11-25 06:32 | NUR ---
MS RN NOTES PATIENT IN BED, WITH INTERMITTENT SLEEP, ALERT AND ORIENTED X 2-3. FORGETFUL. BREATHING EVEN AND UNLABORED ON ROOM AIR. SHOWS NO SIGNS OF ACUTE RESPIRATORY DISTRESS, NO ACUTE PAIN. IV ON RFA #20G SALINE LOCK. ITS CLEAN, DRY AND INTACT. SHOWS NO SIGNS OF INFILTRATION NO REDNESS. ALL DUE MEDICATIONS GIVEN. SAFETY PRECAUTIONS IN PLACE. BED IN LOWEST POSITION. LOCKED, AND CALL LIGHT KEPT WITHIN REACH. WILL ENDORSE TO ONCOMING NURSE.
[2019-11-25 06:37] LABS: BASOPHILS % (AUTO) 0.3 % (0.0-2.0); EOSINOPHILS % (AUTO) 1.5 % (0.0-6.0); HEMATOCRIT 21 % (33-45); LYMPHOCYTES % (AUTO) 13.9 % (20.0-44.0); MEAN CORPUSCULAR VOLUME 106 fL (82-100); MONOCYTES % (AUTO) 13.5 % (2.0-12.0); NEUTROPHILS # (AUTO) 5.2 /CMM (1.8-8.9); NEUTROPHILS % (AUTO) 70.8 % (43.0-81.0); PLATELET COUNT (AUTO) 73 /CMM (150-450); RED BLOOD CELL COUNT(AUTO) 2.02 MIL/uL (4.0-5.2); WHITE BLOOD COUNT (AUTO) 7.3 K/uL (4.3-11.0)
[2019-11-25 07:02] LABS: ALBUMIN 2.4 g/dL (3.4-5.0); BILIRUBIN,TOTAL 14.1 mg/dL (0.2-1.0); CALCIUM, SERUM 8.7 mg/dL (8.5-10.1); CREATININE 0.7 mg/dL (0.6-1.3); MAGNESIUM 1.8 mg/dL (1.8-2.4); POTASSIUM 4.8 mmol/L (3.5-5.1); TOTAL PROTEIN, SERUM 5.1 g/dL (6.4-8.2)
--- NOTE | 2019-11-25 07:10 | NUR ---
ms rn received on bed, awake,alert, oriented x2-3,not in any form of distress,respirations even and unlabored,no sob noted, patient has yellowish color,all needs attended.
[2019-11-25 07:19] LABS: URINE SODIUM, RANDOM 11 mmol/l (40-220)
[2019-11-25 07:38] LABS: OSMOLALITY,URINE 607 mOS/kg (340-1090)
[2019-11-25 08:00] VITALS: BP 112/55
[2019-11-25 08:36] LABS: LYMPHOCYTES % (MANUAL) 15 % (16-48); MONOCYTES % (MANUAL) 14 % (0-11.0); NEUTROPHILS % (MANUAL) 71 (42-76)
[2019-11-25 09:11] LABS: MEAN CORPUSCULAR HGB CONC 36 g/dl (31.0-36.0)
[2019-11-25] MEDS: FOLIC ACID 1 MG TABLET PO SCH (09:14)
[2019-11-25] MEDS: SODIUM CHLORIDE 1000 MG TABLET PO SCH ×3 (09:14→16:49)
[2019-11-25] MEDS: LACTULOSE 10 G/15 ML UDC (PYXIS) PO SCH ×3 (09:14→16:49)
[2019-11-25] MEDS: RIFAXIMIN 550 MG TABLET PO SCH ×2 (09:14→16:49)
[2019-11-25] MEDS: FUROSEMIDE 40 MG TABLET PO SCH ×3 (09:15→16:49)
[2019-11-25] MEDS: MULTIVITAMINS,THERAGRAN 1 UDTAB TABLET PO SCH (09:15)
[2019-11-25] MEDS: THIAMINE HCL 100 MG TABLET PO SCH ×3 (09:15→16:49)
[2019-11-25] MEDS: SPIRONOLACTONE 25 MG TABLET PO SCH ×3 (09:15→16:49)
[2019-11-25] MEDS: ZINC SULFATE 220 MG CAPSULE PO SCH (09:15)
[2019-11-25] MEDS: PANTOPRAZOLE 40 MG TABLET.DR PO SCH (09:20)
[2019-11-25] MEDS: Z GUARD REMEDY 2 OZ OINT TP SCH (09:21)
--- NOTE | 2019-11-25 09:40 | NUR ---
ms anthony was seen by roberto w/ orders made and carried out.
--- NOTE | 2019-11-25 11:50 | NUR ---
ms rn stool specimen sent.
[2019-11-25 14:42] LABS: OCCULT BLOOD STOOL NEGATIVE (NEGATIVE)
[2019-11-25 16:00] VITALS: BP 110/59
--- NOTE | 2019-11-25 19:00 | NUR ---
ms rn on bed, no distress noted.
--- NOTE | 2019-11-25 19:45 | NUR ---
RN NOTES RECEIVED PATIENT AWAKE, ALERT ORIENTED 2-3 WITH EPISODE OF CONFUSION, BREATHING EVEN AND UNLABORED. SAFETY MEASURES IN PLACE, ASPIRATION PRECAUTION EMPHASIZED, CALL LIGHT WITHIN EASY REACH, FLUID RESTRICTION EMPHASIZED PER MD ORDER, ALL NEEDS ANTICIPATED. KEEP CLEAN DRY AND COMFORTABLE, WILL CONTINUE TO MONITOR ACCORDINGLY.
[2019-11-25 20:55] VITALS: BP 111/57
--- NOTE | 2019-11-25 21:02 | NUR ---
RN NOTES PATIENT REFUSED TO SIGN CONSENT FOR COMPUTED TOMOGRAPHY NEEDLE BIOPSY OF THE THYROID. PATIENT STATES " I WILL NOT SIGN ANY CONSENT, I AM HERE FOR MY BACK PAIN, DOCTOR ALWAYS COME UP WITH LOTS OF PROCEDURE" VERBALIZED BY PATIENT. CHARGE NURSE BRUNILDA IS AWARE. WILL MONITOR AND FOLLOW UP TOMORROW MORNING. Addendum: 11/25/19 at 2334 by MELISSA CHI RN WRONG ENTRY. WRONG PATIENT.
[2019-11-25] MEDS: DOCUSATE SODIUM 100 MG CAPSULE PO SCH (21:16)
--- NOTE | 2019-11-25 23:37 | NUR ---
RN medsur opening notes Pt is sleeping in bed comfortably. Pt is alert and orientedx2-3. Respiration is normal in room air. No SOB. No S/S of distress noted. IV sites at RFA # 20 is clean, intact, patent and SL. Safety precautions is maintained. Bed at low position, brakes locked, side rails upX2 and call light is within reach. Will continue to monitor.
--- NOTE | 2019-11-25 23:41 | NUR ---
RN NOTES REPORT GIVEN TO BRIANNE POLANCO FOR CONTINUITY OF CARE. PATIENT IS ASLEEP AT THIS TIME.
[2019-11-26 05:00] VITALS: BP 103/42
[2019-11-26] MEDS: MIDODRINE HCL (5MG) 5 MG TABLET PO SCH ×3 (05:02→21:27)
[2019-11-26 06:25] LABS: BASOPHILS % (AUTO) 0.1 % (0.0-2.0); HEMATOCRIT 21 % (33-45); HEMOGLOBIN 7.7 g/dL (11.5-14.8); LYMPHOCYTES # (AUTO) 0.8 /CMM (0.8-4.8); MEAN CORPUSCULAR HGB CONC 37 g/dl (31.0-36.0); MEAN CORPUSCULAR VOLUME 106 fL (82-100); MONOCYTES # (AUTO) 0.9 /CMM (0.1-1.30); MONOCYTES % (AUTO) 7.9 % (2.0-12.0); NEUTROPHILS # (AUTO) 9.6 /CMM (1.8-8.9); PLATELET COUNT (AUTO) 74 /CMM (150-450); WHITE BLOOD COUNT (AUTO) 11.4 K/uL (4.3-11.0)
[2019-11-26 06:54] LABS: RED BLOOD CELL COUNT(AUTO) 1.98 MIL/uL (4.0-5.2)
--- NOTE | 2019-11-26 07:00 | NUR ---
RN medsurg closing notes Pt is resting in bed comfortably. Pt is alert and orientedx2-3. Respiration is normal in room air. No SOB. No S/S of distress noted. IV sites at RFA# 20 is clean, intact, patent and SL. VS is stable. Routine meds were given as ordered. Kept Pt clean, dry and comfortable. All needs met and attended. Safety precautions is maintained. Bed at low position, brakes locked, side rails upX2 and call light is within reach. Will endorse to morning nurse for JAYCEE.
[2019-11-26 07:28] LABS: ALBUMIN 2.5 g/dL (3.4-5.0); BILIRUBIN,TOTAL 17.2 mg/dL (0.2-1.0); CALCIUM, SERUM 8.7 mg/dL (8.5-10.1); CREATININE 0.7 mg/dL (0.6-1.3); MAGNESIUM 1.8 mg/dL (1.8-2.4); PHOSPHORUS 3.6 mg/dL (2.5-4.9); TOTAL PROTEIN, SERUM 5.2 g/dL (6.4-8.2)
[2019-11-26 08:00] VITALS: BP 98/65
--- NOTE | 2019-11-26 08:00 | NUR ---
m/s loft rigger: initial assessment received pt in bed awake, a/ox2-3 with forgetfulness. skin color jaundice. no c/o pain or any discomfort. reality orientation provided prn. instructed to call for assistance.
[2019-11-26 08:17] LABS: BAND % (MANUAL) 5 % (0.0-5.0); EOSINOPHILS % (MANUAL) 3 % (0-4); LYMPHOCYTES % (MANUAL) 3 % (16-48); MONOCYTES % (MANUAL) 2 % (0-11.0); NEUTROPHILS % (MANUAL) 87 (42-76)
[2019-11-26] MEDS: FOLIC ACID 1 MG TABLET PO SCH (08:24)
[2019-11-26] MEDS: THIAMINE HCL 100 MG TABLET PO SCH ×3 (08:24→17:02)
[2019-11-26] MEDS: LACTULOSE 10 G/15 ML UDC (PYXIS) PO SCH ×3 (08:24→17:02)
[2019-11-26] MEDS: SODIUM CHLORIDE 1000 MG TABLET PO SCH ×3 (08:24→17:02)
[2019-11-26] MEDS: MULTIVITAMINS,THERAGRAN 1 UDTAB TABLET PO SCH (08:25)
[2019-11-26] MEDS: SPIRONOLACTONE 25 MG TABLET PO SCH ×2 (08:25→17:02)
[2019-11-26] MEDS: FUROSEMIDE 40 MG TABLET PO SCH ×2 (08:25→17:03)
[2019-11-26] MEDS: ZINC SULFATE 220 MG CAPSULE PO SCH (08:25)
[2019-11-26] MEDS: RIFAXIMIN 550 MG TABLET PO SCH ×2 (08:25→17:02)
[2019-11-26] MEDS: PANTOPRAZOLE 40 MG TABLET.DR PO SCH (08:25)
--- NOTE | 2019-11-26 10:00 | NUR ---
m/s clinical nutrition manager: notes pt refused am care at this time. instructed to call for assistance. will continue to monitor.
[2019-11-26] MEDS: Z GUARD REMEDY 2 OZ OINT TP SCH (12:21)
--- NOTE | 2019-11-26 13:30 | NUR ---
m/s waste management engineer: notes incontinent care of bladder rendered by staff. kept clean and dry. instructed to call for assistance. will continue to monitor.
[2019-11-26 16:00] VITALS: BP 99/60
--- NOTE | 2019-11-26 16:00 | NUR ---
m/s clinic cma: notes per siva elena (acnp), dr. leonard (gi) to see pt per telephone conversation as stated. pt made aware. instructed to call for assistance. will continue to monitor.
--- NOTE | 2019-11-26 17:30 | NUR ---
m/s biofuels production associate: notes having dinner. hob elevated. needs attended. instructed to call for assistance.
--- NOTE | 2019-11-26 19:10 | NUR ---
MS RN NOTES RECEIVED PT IN BED AWAKE AND ABLE TO MAKE NEEDS KNOWN. PT A/O X3. RESPIRATIONS EVEN AND UNLABORED WITH NO S/S OF ACUTE DISTRESS OR SOB NOTED. NO COMPLAINTS OF PAIN AT THIS TIME. PT NOTED WITH RFA #22G PATENT AND INTACT AND SL. SAFETY MEASURES IN PLACE WITH BED IN LOWEST LOCKED POSITION WITH SIDE RAILS UP X2. CALL LIGHT WITHIN REACH. WILL CONTINUE TO MONITOR.
--- NOTE | 2019-11-26 19:15 | NUR ---
m/s implementation specialist payroll: notes bedside report given to devin (rn) for continuity of care.
[2019-11-26 20:50] VITALS: BP 105/50
[2019-11-26] MEDS: DOCUSATE SODIUM 100 MG CAPSULE PO SCH ×2 (21:25→21:29)
[2019-11-27] MEDS: MIDODRINE HCL (5MG) 5 MG TABLET PO SCH ×3 (05:49→21:30)
[2019-11-27 06:29] LABS: BASOPHILS % (AUTO) 0.3 % (0.0-2.0); HEMATOCRIT 22 % (33-45); HEMOGLOBIN 8.2 g/dL (11.5-14.8); LYMPHOCYTES # (AUTO) 1.2 /CMM (0.8-4.8); LYMPHOCYTES % (AUTO) 14.5 % (20.0-44.0); MEAN CORPUSCULAR HGB CONC 38 g/dl (31.0-36.0); MEAN CORPUSCULAR VOLUME 107 fL (82-100); MONOCYTES # (AUTO) 1.2 /CMM (0.1-1.30); MONOCYTES % (AUTO) 14.9 % (2.0-12.0); NEUTROPHILS # (AUTO) 5.5 /CMM (1.8-8.9); NEUTROPHILS % (AUTO) 68.3 % (43.0-81.0); PLATELET COUNT (AUTO) 70 /CMM (150-450); RED BLOOD CELL COUNT(AUTO) 2.04 MIL/uL (4.0-5.2)
[2019-11-27 06:38] LABS: ALBUMIN 2.6 g/dL (3.4-5.0); BILIRUBIN,TOTAL 17.8 mg/dL (0.2-1.0); CALCIUM, SERUM 8.9 mg/dL (8.5-10.1); CREATININE 0.6 mg/dL (0.6-1.3); MAGNESIUM 1.8 mg/dL (1.8-2.4); PHOSPHORUS 3.5 mg/dL (2.5-4.9); POTASSIUM 4.3 mmol/L (3.5-5.1); TOTAL PROTEIN, SERUM 5.4 g/dL (6.4-8.2)
--- NOTE | 2019-11-27 07:10 | NUR ---
MS RN NOTES PT IN BED AWAKE AND ABLE TO MAKE NEEDS KNOWN. PT A/O X3. RESPIRATIONS EVEN AND UNLABORED WITH NO S/S OF ACUTE DISTRESS OR SOB NOTED THROUGHOUT SHIFT. NO COMPLAINTS OF PAIN AT THIS TIME. PT NOTED WITH RFA #22G PATENT AND INTACT AND SL. PT KEPT CLEAN, DRY, AND COMFORTABLE. SAFETY MEASURES IN PLACE WITH BED IN LOWEST LOCKED POSITION WITH SIDE RAILS UP X2. CALL LIGHT WITHIN REACH. WILL ENDORSE TO ONCOMING NURSE FOR JAYCEE.
--- NOTE | 2019-11-27 07:33 | NUR ---
MS RN NOTES RECEIVED PATIENT IN BED, AWAKE, A/O X3. PATIENT ON ROOM AIR, BREATHING EVENLY AND IN NO ACUTE DISTRESS AT THIS TIME. RFA IV ACCESS PRESENT GAUGE # 20. IT IS INTACT AND FLUSHING WELL. PATIENT DENIES PAIN AT THIS MOMENT. SAFETY PRECAUTIONS IN PLACE; BED IN LOW POSITION AND LOCKED, RAILS UP X2, CALL LIGHT WITHIN REACH. WILL CONTINUE TO MONITOR PATIENT.
[2019-11-27] MEDS: PANTOPRAZOLE 40 MG TABLET.DR PO SCH (07:43)
[2019-11-27 08:00] VITALS: BP 116/56
[2019-11-27 08:22] LABS: EOSINOPHILS % (MANUAL) 2 % (0-4); LYMPHOCYTES % (MANUAL) 13 % (16-48); MONOCYTES % (MANUAL) 12 % (0-11.0); NEUTROPHILS % (MANUAL) 73 (42-76)
[2019-11-27] MEDS: MULTIVITAMINS,THERAGRAN 1 UDTAB TABLET PO SCH (09:29)
[2019-11-27] MEDS: ZINC SULFATE 220 MG CAPSULE PO SCH (09:29)
[2019-11-27] MEDS: RIFAXIMIN 550 MG TABLET PO SCH ×2 (09:29→16:38)
[2019-11-27] MEDS: FUROSEMIDE 40 MG TABLET PO SCH ×2 (09:29→16:38)
[2019-11-27] MEDS: LACTULOSE 10 G/15 ML UDC (PYXIS) PO SCH ×3 (09:29→16:38)
[2019-11-27] MEDS: FOLIC ACID 1 MG TABLET PO SCH (09:29)
[2019-11-27] MEDS: SPIRONOLACTONE 25 MG TABLET PO SCH ×2 (09:29→16:32)
[2019-11-27] MEDS: THIAMINE HCL 100 MG TABLET PO SCH ×3 (09:29→16:38)
[2019-11-27] MEDS: SODIUM CHLORIDE 1000 MG TABLET PO SCH ×3 (09:30→16:38)
[2019-11-27] MEDS: Z GUARD REMEDY 2 OZ OINT TP SCH (09:37)
[2019-11-27] MEDS: SALINE NASAL SPRAY 0.65% 1 BOTTLE BOTTLE NS PRN (14:55)
[2019-11-27 16:00] VITALS: BP 105/54
--- NOTE | 2019-11-27 18:55 | NUR ---
MS RN CLOSING NOTES PATIENT IN BED, AWAKE, A/O X3. PATIENT ON ROOM AIR, BREATHING EVENLY AND IN NO ACUTE DISTRESS AT THIS TIME. RFA IV ACCESS PRESENT GAUGE # 20. IT IS INTACT AND FLUSHING WELL. PATIENT DENIES PAIN AT THIS MOMENT. ALL NEEDS ATTENDED TO THROUGHOUT THE DAY. SAFETY PRECAUTIONS IN PLACE; BED IN LOW POSITION AND LOCKED, RAILS UP X2, CALL LIGHT WITHIN REACH. WILL CONTINUE TO MONITOR PATIENT.
--- NOTE | 2019-11-27 19:21 | NUR ---
MS RN OPENING NOTES PATIENT SLEEPING IN BED, EASY TO AWAKEN. A/OX3. ON ROOM AIR. NO S/S OF ACUTE RESPIRATORY DISTRESS OR PAIN AT THIS TIME. IV PRESENT ON RIGHT FA, SIZE 20, INTACT & PATENT, HEP LOCKED. FLUID RESTRICTIONS IN PLACE. SAFETY MEASURES IN PLACE. BED LOCKED, ALARM ON, SIDE RAILS X2, CALL LIGHT WITHIN REACH. WILL CONTINUE TO MONITOR.
--- NOTE | 2019-11-27 19:55 | NUR ---
MS RN NOTES DRIED BLOOD PRESENT AROUND IV SITE ON RIGHT WRIST. UPON CLEANING AND REMOVING GAUZE, SKIN TEAR WAS FOUND MEASURING AT 1.0 X 1.0 CM. PHOTOS TAKEN AND PLACED IN CHART. WOUND CONSULT PLACED. WILL CONTINUE TO MONITOR SKIN.
[2019-11-27 20:00] VITALS: BP 110/48
--- NOTE | 2019-11-27 21:04 | NUR ---
MS RN NOTES PATIENT C/O OF GENERALIZED PAIN RATED 10/10. EPIC CALLED FOR PRN PAIN MEDICATIONS. [employer]TRANS EQUIPMENT OPERATOR PAGED. AWAITING CALL BACK.
--- NOTE | 2019-11-27 21:20 | NUR ---
MS RN NOTES EPIC CALLED BACK TO F/U WITH STOCK HOUSE WORKER MD. AWAITING CALL BACK.
[2019-11-27] MEDS: DOCUSATE SODIUM 100 MG CAPSULE PO SCH (21:30)
--- NOTE | 2019-11-27 21:50 | NUR ---
MS RN NOTES RECEIVED ORDERS FROM NITIN KIRK MICROSYSTEMS ENGINEER FOR PRN NORCO 5/325 Q6H.
--- NOTE | 2019-11-27 22:00 | NUR ---
MS RN OPENING NOTE REPORT GIVEN BY HEDY RN FOR TRANSFER OF CARE. RECEIVED PATIENT IN BED. A/OX2-3, PER REPORT PERIODS OF CONFUSION. TOLERATING ROOM AIR. RESPIRATIONS ARE EVEN AND UNLABORED. NO S/S SOB NOTED. STATES PAIN IS 10/10. WILL ADMINISTERED PAIN MEDICATION ONCE ORDER IS RECEIVED. IN NO APPARENT DISTRESS. IV ACCESS IN RFA#20 PATENT AND SALINE LOCKED. BED IS LOW AND LOCKED, HOB ELEVATED IN SEMI - HIGH FOWLERS, SIDE RAILS UP X2, BED AL;ARM ON. CALL LIGHT WITHIN REACH. WILL CONTINUE TOP MONITOR.
[2019-11-27] MEDS: HYDROCODONE/APAP 5/325MG 1 EACH TABLET PO PRN (22:30)
--- NOTE | 2019-11-27 22:30 | NUR ---
MS RN NOTE ADMINISTER PRN NORCO 5/325 FOR PAIN 10/10 , GENERALIZED. WILL CONTINUE TO MONITOR.
[2019-11-28] MEDS: MIDODRINE HCL (5MG) 5 MG TABLET PO SCH ×3 (04:40→20:19)
--- NOTE | 2019-11-28 06:33 | NUR ---
MS RN CLOSING NOTE PATIENT IN BED. A/OX2-3. TOLERATING ROOM AIR. RESPIRATIONS ARE EVEN AND UNLABORED. NO SOB NOTED. PAIN MANAGED WITH NORCO 5/325. NO DISTRESS NOTED. IV ACCESS MAINTAINED IN RFA#20 PATENT AND SALINE LOCKED. BED REMAINS LOW AND LOCKED, HOB ELEVATED IN HIGH FOWLERS, SIDE RAILS UP X2, BED ALARM ON. CALL LIGHT WITHIN REACH. WILL ENDORSE TO NEXT SHIFT
[2019-11-28 06:58] LABS: BASOPHILS % (AUTO) 0.3 % (0.0-2.0); EOSINOPHILS % (AUTO) 1.7 % (0.0-6.0); HEMATOCRIT 22 % (33-45); HEMOGLOBIN 7.9 g/dL (11.5-14.8); LYMPHOCYTES # (AUTO) 1.1 /CMM (0.8-4.8); LYMPHOCYTES % (AUTO) 14.8 % (20.0-44.0); MEAN CORPUSCULAR HGB CONC 37 g/dl (31.0-36.0); MEAN CORPUSCULAR VOLUME 109 fL (82-100); MONOCYTES # (AUTO) 0.9 /CMM (0.1-1.30); MONOCYTES % (AUTO) 11.8 % (2.0-12.0); NEUTROPHILS # (AUTO) 5.5 /CMM (1.8-8.9); NEUTROPHILS % (AUTO) 71.4 % (43.0-81.0); PLATELET COUNT (AUTO) 73 /CMM (150-450); WHITE BLOOD COUNT (AUTO) 7.8 K/uL (4.3-11.0)
[2019-11-28 07:00] LABS: RED BLOOD CELL COUNT(AUTO) 1.98 MIL/uL (4.0-5.2)
[2019-11-28 07:16] LABS: ALBUMIN 2.4 g/dL (3.4-5.0); BILIRUBIN,TOTAL 16.7 mg/dL (0.2-1.0); CALCIUM, SERUM 8.8 mg/dL (8.5-10.1); CREATININE 0.7 mg/dL (0.6-1.3); MAGNESIUM 1.8 mg/dL (1.8-2.4); PHOSPHORUS 3.8 mg/dL (2.5-4.9); TOTAL PROTEIN, SERUM 5.2 g/dL (6.4-8.2)
[2019-11-28 07:29] LABS: BAND % (MANUAL) 3 % (0.0-5.0); EOSINOPHILS % (MANUAL) 2 % (0-4); LYMPHOCYTES % (MANUAL) 16 % (16-48); MONOCYTES % (MANUAL) 13 % (0-11.0); NEUTROPHILS % (MANUAL) 66 (42-76)
[2019-11-28 07:56] VITALS: BP 113/54
[2019-11-28 08:00] VITALS: BP 113/54
--- NOTE | 2019-11-28 08:00 | NUR ---
RN NOTES RECEIVED PATIENT IN THE BED A/O X2/3, WITH CONFUSION, NO ACUTE RESPIRATORY DISTRESS, JAUNDICE ON BOTH SCLERAS, AND GENERALIZED. MALNOURISHED. PATIENT UNKEMPT, V/S TAKEN STABLE. PATIENT WAS COMPLAINING OF GENERALIZED PAIN 3/10 PER PAIN SCALE. ALSO CRITICAL LABS NA 117. HOSPITALIST AWARE OF, PATIENT ON 900 ML OF RESTRICTION OF FLUIDS. ADMINISTERED SCHEDULED MEDICATION, BLEEDING FROM NOSE BECAUSE OF PICKING UP NOSE. PATIENT INCONTINENT USING DIAPER, TURN AND REPOSITION SELF IN THE BED. CALL LIGHT WITHIN TO REACH,. SAFETY PRECAUTION MAINTAINED ALL THE TIME.
[2019-11-28] MEDS: MULTIVITAMINS,THERAGRAN 1 UDTAB TABLET PO SCH (08:34)
[2019-11-28] MEDS: THIAMINE HCL 100 MG TABLET PO SCH ×3 (08:34→17:16)
[2019-11-28] MEDS: FOLIC ACID 1 MG TABLET PO SCH (08:34)
[2019-11-28] MEDS: FUROSEMIDE 40 MG TABLET PO SCH ×2 (08:35→17:17)
[2019-11-28] MEDS: RIFAXIMIN 550 MG TABLET PO SCH ×2 (08:35→17:16)
[2019-11-28] MEDS: PANTOPRAZOLE 40 MG TABLET.DR PO SCH (08:35)
[2019-11-28] MEDS: SODIUM CHLORIDE 1000 MG TABLET PO SCH ×3 (08:35→17:16)
[2019-11-28] MEDS: ZINC SULFATE 220 MG CAPSULE PO SCH (08:35)
[2019-11-28] MEDS: Z GUARD REMEDY 2 OZ OINT TP SCH (08:36)
[2019-11-28] MEDS: LACTULOSE 10 G/15 ML UDC (PYXIS) PO SCH ×3 (08:36→17:16)
[2019-11-28] MEDS: SPIRONOLACTONE 25 MG TABLET PO SCH ×2 (08:38→17:17)
[2019-11-28] MEDS: SALINE NASAL SPRAY 0.65% 1 BOTTLE BOTTLE NS PRN (08:48)
--- NOTE | 2019-11-28 12:15 | NUR ---
RN NOTES PATIENT TOLERATED LUNCH WELL, WAS COMPLANING OF PAIN GENERALIZED PAIN 5/10, CALL LIGHT WITHIN TO REACH. CONTINUED MONITORING.
[2019-11-28 12:24] VITALS: BP 113/64
[2019-11-28] MEDS: HYDROCODONE/APAP 5/325MG 1 EACH TABLET PO PRN ×2 (12:24→21:31)
--- NOTE | 2019-11-28 12:24 | NUR ---
MS RN NOTES PT C/O GENERALIZED ACHING PAIN ON A PAIN SCALE 5/10, VITAL SIGNS CHECKED, BP 113/64 PULSE 93, RR 20. ADMINISTERED NORCO 5-325MG PO PRN PER PT REQUEST. PT ON FLUID RESTRICTIONS 900ML
[2019-11-28] MEDS ORDERED: SPIR25TA6 PO (13:01)
[2019-11-28] MEDS ORDERED: SODI100037 PO (13:01)
[2019-11-28 13:55] VITALS: BP 104/57
--- NOTE | 2019-11-28 14:00 | NUR ---
RN NOTES PATIENT WILL DISCHARGE BACK TO THE SNF PER HOSPITALIST ORDER. CASE MANAGEMENT AWARE.
--- NOTE | 2019-11-28 15:00 | NUR ---
RN NOTES PER CASE MANAGEMENT SNF HAS NO BED AVAILABLE TODAY. WILL GO TOMORROW.
[2019-11-28 16:06] VITALS: BP 112/59
--- NOTE | 2019-11-28 18:49 | NUR ---
MS RN CLOSING NOTES PT AWAKE IN BED AT THIS TIME, STABLE VS, RESPIRATIONS EVEN AND UNLABORED, SATURATING WELL ON RA. PT APPEARS COMFORTABLE WITH NO S/S OF ANY ACUTE DISTRESS, PT DENIES PAIN. SAFETY PRECAUTIONS IN PLACE, BED IN LOWEST LOCKED POSITION, SIDE RAILS UP X 2, CALL LIGHT WITHIN REACH. WILL ENDORSE TO NIGHT NURSE FOR JAYCEE
--- NOTE | 2019-11-28 19:15 | NUR ---
MS RN OPENING NOTE PM BEDSIDE REPORT RECIEVED ELMER ZAMBRANO RN . PT AWAKE IN BED AT THIS TIME, RESPIRATIONS EVEN AND UNLABORED, IN NO APPARENT DISTRESS. PT APPEARS COMFORTABLE PT DENIES PAIN AT THIS TIME. SAFETY PRECAUTIONS IN PLACE, BED IN LOWEST LOCKED POSITION, SIDE RAILS UP X 2, CALL LIGHT WITHIN REACH. PENDING DISCHARGE BUT DELAYED D/T BED AVAILABILITY AT FACILITY. REVEWED POC QUESTIONS CONCERNS ADDRESSED. WILL CONT TO MONITOR.
[2019-11-28 20:00] VITALS: BP 111/54
[2019-11-28] MEDS: DOCUSATE SODIUM 100 MG CAPSULE PO SCH (20:19)
[2019-11-29] MEDS: MIDODRINE HCL (5MG) 5 MG TABLET PO SCH ×3 (05:19→20:27)
--- NOTE | 2019-11-29 06:50 | NUR ---
MS RN CLOSING NOTE PM PT AWAKE IN BED AT THIS TIME, RESPIRATIONS EVEN AND UNLABORED, IN NO APPARENT DISTRESS. PT APPEARS COMFORTABLE SAFETY PRECAUTIONS IN PLACE, BED IN LOWEST LOCKED POSITION, SIDE RAILS UP X 2, CALL LIGHT WITHIN REACH. AWAITING DISCHARGE WHEN BED AVAILABLE. ORDER ALREADY WRITTEN
[2019-11-29] MEDS: PANTOPRAZOLE 40 MG TABLET.DR PO SCH (07:49)
[2019-11-29 08:00] VITALS: BP 99/61
--- NOTE | 2019-11-29 08:00 | NUR ---
MS/RN NOTES RECEIVED PATIENT AWAKE LYING ON THE BED COMFORTABLY. ALERT AND ORIENTED X4. RESPIRATIONS EVEN AND UNLABORED, IN NO APPARENT DISTRESS. SAFETY PRECAUTIONS IN PLACE, BED IN LOWEST LOCKED POSITION, SIDE RAILS UP X 2, CALL LIGHT WITHIN REACH. WILL CONTINUE TO MONITOR.
--- NOTE | 2019-11-29 08:23 | NUR ---
WOUND CARE CONSULT: PT SEEN FOR RT WRIST SKIN TEAR. RECOMMENDATIONS MADE FOR SKIN PROTECTION AND WOUND CARE. DISCUSSED WITH NURSING STAFF. WILL SEE PRN. ZUÑIGA IN AGREEMENT WITH PLAN OF CARE. Addendum: 11/29/19 at 0824 by BRIAN CHAPA WNDNU Amended: Links added.
[2019-11-29] MEDS: ZINC SULFATE 220 MG CAPSULE PO SCH (08:43)
[2019-11-29] MEDS: SPIRONOLACTONE 25 MG TABLET PO SCH ×2 (08:43→16:55)
[2019-11-29] MEDS: THIAMINE HCL 100 MG TABLET PO SCH ×3 (08:44→16:56)
[2019-11-29] MEDS: FUROSEMIDE 40 MG TABLET PO SCH ×2 (08:44→16:56)
[2019-11-29] MEDS: SODIUM CHLORIDE 1000 MG TABLET PO SCH ×2 (08:44→12:56)
[2019-11-29] MEDS: LACTULOSE 10 G/15 ML UDC (PYXIS) PO SCH ×3 (08:44→16:56)
[2019-11-29] MEDS: FOLIC ACID 1 MG TABLET PO SCH (08:44)
[2019-11-29] MEDS: RIFAXIMIN 550 MG TABLET PO SCH ×2 (08:44→16:56)
[2019-11-29] MEDS: MULTIVITAMINS,THERAGRAN 1 UDTAB TABLET PO SCH (08:44)
[2019-11-29] MEDS: Z GUARD REMEDY 2 OZ OINT TP SCH (09:00)
--- NOTE | 2019-11-29 13:00 | NUR ---
MS/RN NOTES COVID 19 TEST SPECIMEN WAS SENT TO LAB WAITING FOR RESULT.
[2019-11-29 16:00] VITALS: BP 113/61
[2019-11-29] MEDS ORDERED: IV Sodium Chloride 3% 500 ML 500 ML IV ONE (16:00)
--- NOTE | 2019-11-29 19:06 | NUR ---
MS/RN CLOSING NOTES PATIENT AWAKE LYING ON THE BED COMFORTABLY. ALERT AND ORIENTED X4. RESPIRATIONS EVEN AND UNLABORED, IN NO APPARENT DISTRESS. SAFETY PRECAUTIONS IN PLACE, BED IN LOWEST LOCKED POSITION, SIDE RAILS UP X 2, CALL LIGHT WITHIN REACH. WILL ENDORSED TO PAINTER ORDNANCE FOR JAYCEE.
--- NOTE | 2019-11-29 19:20 | NUR ---
MS/RN OPENING NOTE BEDSIDE REPORT RECIEVED FROM DERRICK DECKER. PATIENT AWAKE LYING ON THE BED. ALERT AND ORIENTED X4. REVIEWED POC QUESTIONS CONCERNS ADDRESSED. PATIENT PLAN IS TO TRY TO TRANSFER TO [facility] OR [facility] IN HOPES OF RECIEVING LIVER TRANSPLANT/TREATMENT. RESPIRATIONS EVEN AND UNLABORED, IN NO APPARENT DISTRESS. SAFETY PRECAUTIONS IN PLACE, BED IN LOWEST LOCKED POSITION, SIDE RAILS UP X 2, CALL LIGHT WITHIN REACH. WILL CONT TO MONITOR.
[2019-11-29] MEDS: HYDROCODONE/APAP 5/325MG 1 EACH TABLET PO PRN (19:43)
[2019-11-29 20:00] VITALS: BP 101/47
[2019-11-29] MEDS: DOCUSATE SODIUM 100 MG CAPSULE PO SCH (20:27)
[2019-11-30] MEDS: MIDODRINE HCL (5MG) 5 MG TABLET PO SCH ×3 (04:51→20:48)
[2019-11-30] MEDS: HYDROCODONE/APAP 5/325MG 1 EACH TABLET PO PRN ×2 (04:56→20:49)
--- NOTE | 2019-11-30 06:20 | NUR ---
MS/RN CLOSING NOTE PATIENT SEEN IN BED WITH EYES CLOSED. PATIENT PLAN IS TO TRY TO TRANSFER TO [facility] OR [facility] IN HOPES OF RECIEVING LIVER TRANSPLANT/TREATMENT. RESPIRATIONS EVEN AND UNLABORED, IN NO APPARENT DISTRESS. SAFETY PRECAUTIONS IN PLACE, BED IN LOWEST LOCKED POSITION, SIDE RAILS UP X 2, CALL LIGHT WITHIN REACH. WILL CONT TO MONITOR. PT HAD NO CHANGE TO MENTAL STATUS DURING SHIFT. WILL ENDORSE TO ONCOMING SHIFT.
--- NOTE | 2019-11-30 06:22 | NUR ---
IVF 3% NS DISCONTINUED. Addendum: 11/30/19 at 0623 by BRAYAN MAN RN USER ERROR CORRECT TIME WAS AT 0130 IVF DISCONTINUED.
[2019-11-30 06:54] LABS: BASOPHILS % (AUTO) 0.5 % (0.0-2.0); EOSINOPHILS % (AUTO) 2.6 % (0.0-6.0); HEMATOCRIT 21 % (33-45); HEMOGLOBIN 7.9 g/dL (11.5-14.8); LYMPHOCYTES # (AUTO) 1.2 /CMM (0.8-4.8); LYMPHOCYTES % (AUTO) 16.4 % (20.0-44.0); MEAN CORPUSCULAR HGB CONC 37 g/dl (31.0-36.0); MEAN CORPUSCULAR VOLUME 107 fL (82-100); MONOCYTES % (AUTO) 13.4 % (2.0-12.0); NEUTROPHILS # (AUTO) 4.8 /CMM (1.8-8.9); NEUTROPHILS % (AUTO) 67.1 % (43.0-81.0); PLATELET COUNT (AUTO) 87 /CMM (150-450); WHITE BLOOD COUNT (AUTO) 7.1 K/uL (4.3-11.0)
[2019-11-30 06:56] LABS: RED BLOOD CELL COUNT(AUTO) 1.98 MIL/uL (4.0-5.2)
[2019-11-30 07:09] LABS: ALBUMIN 2.6 g/dL (3.4-5.0); BILIRUBIN,TOTAL 18.4 mg/dL (0.2-1.0); CALCIUM, SERUM 9.1 mg/dL (8.5-10.1); CREATININE 0.9 mg/dL (0.6-1.3); MAGNESIUM 1.9 mg/dL (1.8-2.4); PHOSPHORUS 3.8 mg/dL (2.5-4.9); TOTAL PROTEIN, SERUM 5.6 g/dL (6.4-8.2)
[2019-11-30 07:34] LABS: BAND % (MANUAL) 6 % (0.0-5.0); EOSINOPHILS % (MANUAL) 4 % (0-4); LYMPHOCYTES % (MANUAL) 19 % (16-48); MONOCYTES % (MANUAL) 9 % (0-11.0); NEUTROPHILS % (MANUAL) 62 (42-76)
[2019-11-30 08:00] VITALS: BP 128/63
--- NOTE | 2019-11-30 08:00 | NUR ---
MS RN OPENING NOTES Received Patient awake and resting in bed. A/O x 3. VS stable with no acute distress. Breathing even and unlabored on room air with no respiratory distress. Denies pain. No signs and symptoms of pain. 20g PIV on RFA clean, intact, patent and flushing well. Safety precautions in place. Bed locked and set to lowest position with side rails x 2 up. All needs rendered at this time. Call light within reach. Will continue to monitor.
[2019-11-30] MEDS: SPIRONOLACTONE 25 MG TABLET PO SCH ×2 (08:43→18:33)
[2019-11-30] MEDS: PANTOPRAZOLE 40 MG TABLET.DR PO SCH (08:43)
[2019-11-30] MEDS: MULTIVITAMINS,THERAGRAN 1 UDTAB TABLET PO SCH (08:44)
[2019-11-30] MEDS: FUROSEMIDE 40 MG TABLET PO SCH ×2 (08:44→18:33)
[2019-11-30] MEDS: LACTULOSE 10 G/15 ML UDC (PYXIS) PO SCH ×3 (08:44→18:33)
[2019-11-30] MEDS: RIFAXIMIN 550 MG TABLET PO SCH ×2 (08:44→18:33)
[2019-11-30] MEDS: FOLIC ACID 1 MG TABLET PO SCH (08:44)
[2019-11-30] MEDS: ZINC SULFATE 220 MG CAPSULE PO SCH (08:44)
[2019-11-30] MEDS: THIAMINE HCL 100 MG TABLET PO SCH ×3 (08:44→18:33)
[2019-11-30] MEDS: Z GUARD REMEDY 2 OZ OINT TP SCH (08:45)
--- NOTE | 2019-11-30 18:42 | NUR ---
MS RN CLOSING NOTES Received Patient awake and resting in bed. A/O x 3. VS stable with no acute distress. Breathing even and unlabored on room air with no respiratory distress. Denies pain. No signs and symptoms of pain. 20g PIV on RFA clean, intact, patent and flushing well. Safety precautions in place. Bed locked and set to lowest position with side rails x 2 up. All needs rendered at this time. Call light within reach. Will endorse plan of care to oncoming shift.
--- NOTE | 2019-11-30 19:05 | NUR ---
RN MS OPENING NOTES RECEIVED PATIENT IN BED AWAKE ALERT AND ORIENTED X3, ABLE TO MAKE NEEDS KNOWN, RESPIRATIONS EVEN AND UNLABORED WITH EQUAL RISE AND FALL OF CHEST, AT THIS TIME, DENIES ANY PAIN OR DISCOMFORT , ON FLUID RESTRICTION AND AWARE, IV SITE TO RIGHT FA #20 G INTACT AND PATENT, NO REDNESS, NO INFILTRATION PRESENT SL.ORIENTED TO STAFF AND CALL LIGHT AND KEPT WITHIN REACH SAFETY PRECAUTIONS IN PLACE, LOW BED AND LOCKED, BED ALARM IN PLACE, ALL NEEDS ATTENDED AT THIS TIME, WILL CONTINUE TO MONITOR AND ATTEND TO NEEDS, PATIENT IS INSISTING TO SHUT DOOR, EDUCATION ON FALL SAFETY RISK PRECAUTIONS, PER REQUEST DOOR CLOSED. WILL CONTINUE TO MONITOR CLOSELY.REMAINS COMFORTABLE AT THIS TIME.
[2019-11-30 20:00] VITALS: BP 110/56
[2019-11-30 20:09] VITALS: BP 110/56
--- NOTE | 2019-11-30 20:49 | NUR ---
RN MS NOTES PATIENT COMPLAINT OF HEADACHE STATES 02/01 REQUESTED FOR NORCO PRN. PRN NORCO GIVEN ORDERED VS WNL. LIGHTS DIMMED WILL CONTINUE TO MONITOR AND ATTEND TO NEEDS.
[2019-11-30] MEDS: DOCUSATE SODIUM 100 MG CAPSULE PO SCH (21:08)
[2019-12-01] MEDS: HYDROCODONE/APAP 5/325MG 1 EACH TABLET PO PRN ×2 (04:05→09:58)
[2019-12-01] MEDS: MIDODRINE HCL (5MG) 5 MG TABLET PO SCH ×3 (04:09→21:00)
--- NOTE | 2019-12-01 04:14 | NUR ---
rn ms notes patient complaint of pain to generalized body 02/01 requested for norco prn given vs wnl.will continue to monitor for effectiveness.
--- NOTE | 2019-12-01 06:40 | NUR ---
RN MS CLOSING NOTES PATIENT IN BED AWAKE ALERT AND ORIENTED X3, ABLE TO MAKE NEEDS KNOWN, RESPIRATIONS EVEN AND UNLABORED WITH EQUAL RISE AND FALL OF CHEST, AT THIS TIME, DENIES ANY PAIN OR DISCOMFORT , ON FLUID RESTRICTIONS HAD ONE CUP THROUGHOUT SHIFT, IV SITE TO RIGHT FA #20 G INTACT AND PATENT, NO REDNESS, NO INFILTRATION PRESENT SL.CALL LIGHT KEPT WITHIN REACH SAFETY PRECAUTIONS IN PLACE, LOW BED AND LOCKED, BED ALARM IN PLACE, ALL NEEDS ATTENDED AT THIS TIME, WILL CONTINUE TO MONITOR AND ATTEND TO NEEDS, FALL SAFETY RISK PRECAUTIONS RENDERED . WILL CONTINUE TO MONITOR AND ENDORSE TO NEXT SHIFT, REMAINS COMFORTABLE AT THIS TIME.
[2019-12-01 07:04] LABS: ALBUMIN 2.5 g/dL (3.4-5.0); BILIRUBIN,TOTAL 16.6 mg/dL (0.2-1.0); CALCIUM, SERUM 8.9 mg/dL (8.5-10.1); CREATININE 0.8 mg/dL (0.6-1.3); POTASSIUM 5.2 mmol/L (3.5-5.1); TOTAL PROTEIN, SERUM 5.3 g/dL (6.4-8.2)
--- NOTE | 2019-12-01 07:13 | NUR ---
rn ms notes received call from lab sodium level of 115. will call epic and endorse to next shift for continuity of care
[2019-12-01 07:22] LABS: HEMOGLOBIN 7.3 g/dL (11.5-14.8); LYMPHOCYTES # (AUTO) 1.4 /CMM (0.8-4.8)
[2019-12-01 08:00] VITALS: BP 110/59
[2019-12-01 08:12] LABS: BASOPHILS % (AUTO) 0.3 % (0.0-2.0); EOSINOPHILS % (AUTO) 2.7 % (0.0-6.0); LYMPHOCYTES % (AUTO) 17.4 % (20.0-44.0); MEAN CORPUSCULAR HGB CONC 37 g/dl (31.0-36.0); MEAN CORPUSCULAR VOLUME 106 fL (82-100); MONOCYTES # (AUTO) 1.2 /CMM (0.1-1.30); MONOCYTES % (AUTO) 14.9 % (2.0-12.0); NEUTROPHILS # (AUTO) 5.1 /CMM (1.8-8.9); NEUTROPHILS % (AUTO) 64.7 % (43.0-81.0); PLATELET COUNT (AUTO) 86 /CMM (150-450); WHITE BLOOD COUNT (AUTO) 7.9 K/uL (4.3-11.0)
[2019-12-01 08:31] LABS: RED BLOOD CELL COUNT(AUTO) 1.87 MIL/uL (4.0-5.2)
[2019-12-01 08:32] LABS: HEMATOCRIT 20 % (33-45)
[2019-12-01 08:43] LABS: BAND % (MANUAL) 1 % (0.0-5.0); LYMPHOCYTES % (MANUAL) 16 % (16-48); NEUTROPHILS % (MANUAL) 70 (42-76)
[2019-12-01 08:44] LABS: EOSINOPHILS % (MANUAL) 3 % (0-4); MONOCYTES % (MANUAL) 9 % (0-11.0); MYELOCYTES % 1 % (0-0)
[2019-12-01] MEDS: RIFAXIMIN 550 MG TABLET PO SCH ×3 (09:00→17:00)
[2019-12-01] MEDS: SPIRONOLACTONE 25 MG TABLET PO SCH ×2 (09:00→17:00)
[2019-12-01] MEDS: PANTOPRAZOLE 40 MG TABLET.DR PO SCH (09:29)
[2019-12-01] MEDS: DOCUSATE SODIUM 100 MG CAPSULE PO SCH (09:30)
[2019-12-01] MEDS: LACTULOSE 10 G/15 ML UDC (PYXIS) PO SCH ×3 (09:30→17:58)
[2019-12-01] MEDS: FOLIC ACID 1 MG TABLET PO SCH (09:30)
[2019-12-01] MEDS: FUROSEMIDE 40 MG TABLET PO SCH ×2 (09:30→17:00)
[2019-12-01] MEDS: THIAMINE HCL 100 MG TABLET PO SCH ×3 (09:34→17:59)
[2019-12-01] MEDS: ZINC SULFATE 220 MG CAPSULE PO SCH (09:34)
[2019-12-01] MEDS: MULTIVITAMINS,THERAGRAN 1 UDTAB TABLET PO SCH (09:34)
[2019-12-01] MEDS: Z GUARD REMEDY 2 OZ OINT TP SCH (10:01)
[2019-12-01 16:00] VITALS: BP 93/44
[2019-12-01] MEDS ORDERED: IV Sodium Chloride 3% 500 ML 500 ML IV ONE (16:00)
--- NOTE | 2019-12-01 18:00 | NUR ---
PT. RECEIVED ALERT AND ORIENTED X3-4.VS STABLE.SKIN WARM AND DRY,SLUGGISH IN RESPONSES.DR. KNOTT HERE AND AWARE OF ABN. LABS.ON 3% SALINE IV.STILL AWAITING [facility] BED PLACEMENT.CHAD. MED ALDACTONE AND LASIX HELD DUE TO LOW BP.
--- NOTE | 2019-12-01 19:20 | NUR ---
MS RN NOTES RECEIVED ON BED A/O X2-3,BREATHING REGULAR,NOT IN ANY FORM OF DISTRESS,O2 SAT 100% ON ROOM AIR,3% SN AT 35ML/HR RATE INFUSING VIA IV PUMP.NOTED.WITH KNOWN HX OF LIVER CIRRHOSIS,ICTERIC SCLERAE NOTED.CALL LIGHT IN REACH,NEEDS ANTICIPATED.
--- NOTE | 2019-12-01 19:30 | NUR ---
MS RN NOTES VOMITED THIS TIME.MOSTLY UNDIGESTED FOOD.CLEANED AND KEPT DRY.
[2019-12-01 20:00] VITALS: BP 103/49
[2019-12-01] MEDS: ONDANSETRON HCL/PF 4 MG/2 ML VIAL IVP PRN ×2 (20:59→22:36)
--- NOTE | 2019-12-01 20:59 | NUR ---
MS RN NOTES MEDICATED WITH ZOFRAN 4MG IV ORDERED FOR N/V.
--- NOTE | 2019-12-02 05:00 | NUR ---
MS RN NOTES BP 102/53.NO N.V NOTED.DUE PO MEDS ADMINISTERED
[2019-12-02] MEDS: MIDODRINE HCL (5MG) 5 MG TABLET PO SCH ×2 (05:01→13:00)
--- NOTE | 2019-12-02 06:24 | NUR ---
MS RN NOTES ON BED,MORE ALERT,WITH EPISODE OF CONFUSION BUT FOLLOWS COMMAND,ON FLUID RESTRICTION ORDERED 900/DAY.POSSIBLE TRANSFER TO [facility] FOR HIGHER LEVEL OF CARE,AWAITING FOR BED.IN NO ACUTE DISTRESS.
[2019-12-02 07:25] LABS: CREATININE 0.7 mg/dL (0.6-1.3); POTASSIUM 5.7 mmol/L (3.5-5.1)
[2019-12-02 07:26] LABS: BASOPHILS % (AUTO) 0.2 % (0.0-2.0); EOSINOPHILS % (AUTO) 1.1 % (0.0-6.0); HEMATOCRIT 21 % (33-45); HEMOGLOBIN 7.6 g/dL (11.5-14.8); LYMPHOCYTES # (AUTO) 0.8 /CMM (0.8-4.8); LYMPHOCYTES % (AUTO) 13.6 % (20.0-44.0); MEAN CORPUSCULAR HGB CONC 37 g/dl (31.0-36.0); MEAN CORPUSCULAR VOLUME 107 fL (82-100); MONOCYTES # (AUTO) 0.7 /CMM (0.1-1.30); MONOCYTES % (AUTO) 12.8 % (2.0-12.0); NEUTROPHILS # (AUTO) 4.2 /CMM (1.8-8.9); NEUTROPHILS % (AUTO) 72.3 % (43.0-81.0); PLATELET COUNT (AUTO) 85 /CMM (150-450); WHITE BLOOD COUNT (AUTO) 5.8 K/uL (4.3-11.0)
[2019-12-02 07:27] LABS: RED BLOOD CELL COUNT(AUTO) 1.93 MIL/uL (4.0-5.2)
[2019-12-02 08:00] VITALS: BP 131/66
[2019-12-02] MEDS: PANTOPRAZOLE 40 MG TABLET.DR PO SCH (08:29)
[2019-12-02] MEDS: SPIRONOLACTONE 25 MG TABLET PO SCH ×2 (08:30→17:00)
[2019-12-02] MEDS: MULTIVITAMINS,THERAGRAN 1 UDTAB TABLET PO SCH (08:30)
[2019-12-02] MEDS: THIAMINE HCL 100 MG TABLET PO SCH ×3 (08:30→17:00)
[2019-12-02] MEDS: RIFAXIMIN 550 MG TABLET PO SCH ×2 (08:30→17:00)
[2019-12-02] MEDS: FOLIC ACID 1 MG TABLET PO SCH (08:30)
[2019-12-02] MEDS: ZINC SULFATE 220 MG CAPSULE PO SCH (08:30)
[2019-12-02] MEDS: Z GUARD REMEDY 2 OZ OINT TP SCH (08:30)
[2019-12-02] MEDS: FUROSEMIDE 40 MG TABLET PO SCH ×2 (08:30→17:00)
[2019-12-02] MEDS: LACTULOSE 10 G/15 ML UDC (PYXIS) PO SCH ×3 (08:31→17:00)
[2019-12-02 10:39] LABS: ALBUMIN 2.5 g/dL (3.4-5.0); BILIRUBIN,DIRECT 9.4 mg/dL (0.0-0.2); TOTAL PROTEIN, SERUM 5.3 g/dL (6.4-8.2)
[2019-12-02 16:00] VITALS: BP 106/52
--- NOTE | 2019-12-02 19:40 | NUR ---
MS RN NOTES RECEIVED SITTING ON BED,A/O X2-3,AWAITING TRANSPORT GOING TO [facility] FOR HIGHER LEVEL OF CARE.
--- NOTE | 2019-12-02 20:00 | NUR ---
MS RN NOTES DRYING ROOM SUPERVISOR BY AMBULANCE IN STABLE CONDITION.ALL BELONGINGS GIVEN.VITAL SIGNS STABLE.
== END 2019-12-02 20:10 | disposition short-term general hospital (02) | DRG 280 ==
LOC: ER 17:10 → MED 21:17 → TELE 22:44 → MED 11-19 12:18 → MEDSG2 11-24 14:09 → MED 11-26 12:04
PROC: 30233N1 Transfusion of Nonautologous Red Blood Cells into Peripheral Vein, Percutaneous Approach (ICD-10-PCS; principal; 2019-11-23)
DX: K70.31 Alcoholic cirrhosis of liver with ascites (principal); K70.40 Alcoholic hepatic failure without coma; E43 Unspecified severe protein-calorie malnutrition; D69.59 Other secondary thrombocytopenia; D68.4 Acquired coagulation factor deficiency; E83.52 Hypercalcemia; E87.8 Other disorders of electrolyte and fluid balance, not elsewhere classified; E87.1 Hypo-osmolality and hyponatremia; I12.0 Hypertensive chronic kidney disease with stage 5 chronic kidney disease or end stage renal disease; K76.6 Portal hypertension; K59.00 Constipation, unspecified; K80.20 Calculus of gallbladder without cholecystitis without obstruction; D53.9 Nutritional anemia, unspecified; E86.9 Volume depletion, unspecified; Z85.828 Personal history of other malignant neoplasm of skin; R40.2413 Glasgow coma scale score 13-15, at hospital admission; E88.09 Other disorders of plasma-protein metabolism, not elsewhere classified; Z68.1 Body mass index [BMI] 19.9 or less, adult; M48.56XS Collapsed vertebra, not elsewhere classified, lumbar region, sequela of fracture; N20.0 Calculus of kidney; F10.10 Alcohol abuse, uncomplicated
CPT/HCPCS: 36415; 71045-TC; 74181-TC; 76705-TC; 80048-TC; 80053-TC; 80061-TC; 80076-TC; 81000-TC; 82140-TC; 82272-TC; 82728-TC; 83540-TC; 83605-TC; 83690-TC; 83735-TC; 83935-TC; 84100-TC; 84300-TC; 84439-TC; 84443-TC; 84550-TC; 85025-TC; 85610-TC; 85730-TC; 86850-TC; 86921-TC; 87081-TC; 87086-TC; 93307-TC; G0378; J2405; J3475; J3490; J7030; J7050; P9016-BL; Q9967